=== PATIENT | male | born 1950 | race Caucasian/White ===

== ENCOUNTER 2021-03-18 08:46 | Inpatient (IN) | payer MEDICARE, OTHER, SELFPAY ==
[2021-03-18] VITALS (13 sets, daily range): BP systolic 103–154; BP diastolic 62–76; PULSE 78–97; RESP 12–20; TEMP 36.3–36.6; O2SAT 93–99; BMI 35.6
--- NOTE | ~2021-03-18 | US_ITS ---
EXAMINATION: US abdomen complete DATE: 03/20/2021 10:52 INDICATION: Epigastric abdominal pain. TECHNIQUE: Multiple grayscale and Doppler ultrasound images of the abdomen were obtained. COMPARISON: CT abdomen and pelvis 03/18/2021 FINDINGS: The visualized portions of the head and body of the pancreas are normal. The liver is jerry l without focal lesion. No liver surface nodularity. There is normal flow in main portal vein. The ga llbladder is normal in size. No gallstones or gallbladder wall thickening. There was no sonographic M urphy sign. The common duct is normal and measures 6 mm. The inferior vena cava is normal. Abdominal aorta is normal in caliber. The kidneys are normal in size. There are cysts in the kidneys measuring up to 2.0 cm on the right. There is borderline splenomegaly measuring 13.2 cm, likely secondary to ob esity. IMPRESSION: 1. No etiology for the patient's symptoms. Reviewed, dictated and finalized at location B.
--- NOTE | ~2021-03-18 | CT_ITS ---
EXAMINATION: CT abdomen pelvis wo con DATE: 03/18/2021 12:15 INDICATION: Bowel obstruction with nausea, vomiting and constipation. TECHNIQUE: Computed tomography (CT) of the abdomen and pelvis was performed without intravenous contr ast. Automated exposure control and iterative reconstruction technique were employed. The dose-length product was 1393.60 mGy-cm. COMPARISON: CT abdomen and pelvis dated 08/11/2013 and chest dated 12/09/2019 FINDINGS: Mild emphysema in the lung bases. New peripheral opacities in the posterolateral right lower lobe wit h bandlike configuration on the sagittal and coronal projections most consistent with atelectasis/sca rring. Additional mild left basilar atelectasis. Heart size is normal. No pericardial effusion. Promi nent wall thickening along the visualized distal esophagus suspicious for esophagitis such as in the setting of reflux. There is also suggestion of some wall thickening in the proximal duodenum suggesti ve of duodenitis which could also be infectious or inflammatory in etiology or related to peptic ulce r disease. 1.3 cm cyst in the right hepatic lobe. Gallbladder, spleen, pancreas and bilateral adrenal glands are normal. Bilateral renal cysts, the largest on the right measuring 2.4 cm. There are few s cattered colonic diverticula without adjacent inflammatory change to suggest diverticulitis. Normal a ppendix. No dilated bowel to suggest obstruction. Bladder is normal. Mild prostatomegaly. No free int raperitoneal gas or fluid. No pathologically enlarged abdominal or pelvic lymphadenopathy. Mild scatt ered degenerative skeletal changes. IMPRESSION: 1. Prominent wall thickening the distal esophagus suspicious for esophagitis which could be infectiou s or inflammatory etiology including due to reflux. Given the extent of wall thickening, malignancy w ould be less likely but could consider endoscopy for more definitive determination. 2. Mild wall thickening in the proximal duodenum with similar differential most likely either infecti ous or inflammatory including peptic ulcer disease. Reviewed, dictated and finalized at location A. IMPRESSION: 1. Prominent wall thickening the distal esophagus suspicious for esophagitis wh ich could be infectious or inflammatory etiology including due to reflux. Given the extent of wall thickening, malignancy would be less likely but could consi siva endoscopy for more definitive determination. 2. Mild wall thickening in the proximal duodenum with similar differential most likely either infectious or inflammatory including peptic ulcer disease.
[2021-03-18 10:16] LABS: Basophils Percent Auto 0.3 % (0.2-1.2); Eosinophils Percent Auto 0.1 % (0-4.4); Hematocrit 44.5 % (42.0-52.0); Hemoglobin 15.3 g/dL (14.0-18.0); Immature Granulocyte Percent A 0.9 % (0-0.5); Lymphocytes Absolute Auto 0.65 K/mm3 (0.9-3.2); Lymphocytes Percent Auto 5.6 % (18.3-44.2); Mean Corpuscular HGB Conc 34.4 g/dl (32-36); Mean Corpuscular Hemoglobin 29.8 pg (26-34); Mean Corpuscular Volume 86.7 fl (80-100); Mean Platelet Volume 9.6 fl (7.4-10.4); Monocytes Absolute Auto 0.9 K/mm3 (0.1-0.6); Neutrophils Absolute Auto 9.9 K/mm3 (1.3-6.7); Neutrophils Percent Auto 85.1 % (45.5-73.1); Platelet Count Result 240 k/mm3 (150-375); Red Blood Count 5.13 M/mm3 (4.6-6.20); Red Cell Distribution Width 13.3 % (11.5-14.5); White Blood Count 11.6 K/mm3 (4.5-10.0)
[2021-03-18 10:42] LABS: Alanine Aminotransferase 18 U/L (4-50); Albumin Level 4.6 g/dL (3.5-5.1); Alkaline Phosphatase 91 U/L (38-126); Anion Gap 15 mmol/L (8-16); Aspartate Amino Transferase 18 U/L (17-59); Bilirubin,Total 0.8 mg/dL (0.2-1.3); Blood Urea Nitrogen 58 mg/dL (9-20); Calcium 9.9 mg/dL (8.4-10.2); Carbon Dioxide 22 mmol/L (22-30); Chloride 94 mmol/L (98-107); Estimated CRCL calculation 41 ml/min; Estimated Glomerular Filt Rate 30; Glucose 510 mg/dL (75-110); Lipase 52 U/L (23-300); Potassium 4.1 mmol/L (3.4-5.0); Sodium 131 mmol/L (137-145)
[2021-03-18 11:14] LABS: Magnesium 2.2 mg/dL (1.6-2.3); Phosphorus 3.7 mg/dL (2.5-4.5)
[2021-03-18] MEDS: SODIUM CHLORIDE 0.9% IV 1,000 ML 999 ML IV CONT ×3 (11:19→15:01)
[2021-03-18] MEDS: ONDANSETRON INJ 4 MG/2 ML VIAL IV PUSH ×2 (11:21→17:36)
[2021-03-18 11:22] LABS: Add Urine Microscopic? YES; Appearance Urine Clear (Clear); Bilirubin Urine Negative (Negative); Blood Urine 1+ (Negative); Color Urine Yellow (Yellow); Glucose Urine UA 3+ mg/dL (Negative); Ketones Urine 1+ mg/dL (Negative); Leukocyte Esterase Ur Negative LEU/UL (Negative); Mucus Urine Rare /lpf; Nitrate Urine Negative (Negative); Protein Urine 2+ mg/dL (Negative); RBC Urine 0-2 /hpf (0-2); Specific Grav Ur 1.026 (1.001-1.035); Squamous Epithelial Cell Urine Rare /hpf (Few); Urobilinogen Urine Negative mg/dL (<2.0); WBC Urine 0-3 /hpf
[2021-03-18] MEDS: PANTOPRAZOLE SODIUM IV 40 MG VIAL IV PUSH ×2 (11:23→20:58)
[2021-03-18 11:25] LABS: Beta-Hydroxybutyrate/Acetoacetate 3.35 mmol/L (0.02-0.27)
--- NOTE | 2021-03-18 11:33 | ECG_ITS ---
Measurements Intervals [place] Rate: 89 P: 61 [place]: 157 QRS: 19 QRSD: 150 T: 40 QT: 398 QTc: 484 Interpretive Statements SINUS RHYTHM RIGHT BUNDLE BRANCH BLOCK ABNORMAL ECG Electronically Signed On 03-18-2021 17:39:43 CDT by Fish Wiggins D.O.
[2021-03-18 11:54] LABS: Alveolar/Arterial O2 Gradient 42.3 mmHg; Base Excess ABG -6.4 mEq/l (+/-2.0); Carboxyhemoglobin 0.8 % THb (0-2.0); Fractional Inspired Oxygen 21 %; Methemoglobin ABG 0.2 %THb (0-1.5); Oxygen Content ABG 18.4 %vol (16.0-22.0); Oxygen Saturation ABG 93.1 % (95.0-100.0); Oxyhemoglobin 92.1 % THb (90.0-100.0); PCO2 ABG 32.9 mmHg (35.0-45.0); PO2 FiO2 Ratio Arterial Blood 3.24 %; Reduced Hemoglobin 6.9 %THb (0-5.0); Total Hemoglobin 14.2 g/dL (12.0-18.0); pH ABG 7.356 (7.350-7.450)
[2021-03-18 11:55] LABS: Device ROOM AIR; Site Drawn LEFT BRACHIAL
--- NOTE | 2021-03-18 12:24 | ED.GENADULT ---
HPI - General Adult General Chief complaint: Nausea/Vomiting/Diarrhea Stated complaint: vomiting x 3 days/constipation/weak Time Seen by Provider: 03/18/21 10:28 Source: patient and family Mode of arrival: ambulatory Limitations: no limitations History of Present Illness HPI narrative: Patient is 70-year-old male who presents with 4 days duration of emesis multiple episodes per day with some aching pain in the upper abdomen denies sick contacts or similar occurrence in the past patient had Zofran called in by primary care which she has been taking but continues to have emesis patient denies any rectal bleeding or melena has not had a bowel movement in 4 days patient on arrival appears uncomfortable and notes that any p.o. intake causes emesis Related Data Home Medications Medication Instructions Recorded Confirmed blood sugar diagnostic #10 each 12/07/19 11/30/20 blood-glucose meter #1 each 12/07/19 11/30/20 lancets 30 gauge #25 each 12/07/19 11/30/20 subcutaneous insulin pump #1 each 03/24/20 11/30/20 pen needle, diabetic 31 gauge x #30 each 06/15/20 11/30/2004/16 amlodipine [Norvasc] 10 mg PO DAILY 03/18/21 03/18/21 atorvastatin 03/18/21 duloxetine [Cymbalta] 60 mg PO DAILY 03/18/21 03/18/21 insulin aspart U-100 [Novolog 03/18/21 U-100 Insulin aspart] metformin mg PO 03/18/21 tamsulosin [Flomax] 0.4 mg PO DAILY 03/18/21 03/18/21 valsartan [Diovan] 320 mg PO DAILY 03/18/21 03/18/21 Allergies Allergy/AdvReac Type Severity Reaction Status Date / Time oxycodone Allergy Unknown Hives Verified 03/18/21 09:02 Review of Systems Review of Systems: All systems reviewed & are unremarkable except as noted in HPI and below PMFSH Past Medical History Medical History (Updated 03/18/21 @ 13:51 by Alfred Cruz PA-C) Chronic pain Erectile dysfunction Essential (primary) hypertension Insulin pump in place [facility] (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) 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 Pure hypercholesterolemia Tobacco abuse Type 2 diabetes mellitus with hyperglycemia Type 2 diabetes mellitus without complications Surgical History Surgical History (Updated 03/18/21 @ 12:25 by Alfred Cruz PA-C) History of orthopedic surgery Family History Family History Mother Hypertension Family history of malignant neoplasm of ovary Father Family history of chronic obstructive pulmonary disease, Onset Age: 66 Other Depression Family history of arthritis Family history of lung disease Family history of mental disorder Social History Social History Smoking packs per day: 1 Smoking cigarettes per day: 20.0 Years smoked: 35 Smoking pack-years: 35.00 Smoking status: Former smoker Tobacco type: cigarettes Second hand tobacco smoke exposure: Yes Smoking end date: 12/02/12 Alcohol intake: never Substance use: never Substance use type: does not use Gender identity (if verbalized by the patient): Male Exam Narrative: Exam Narrative: GENERAL: Well-appearing, obese, and in no acute distress. HEAD: Normocephalic, atraumatic. EYES: PERRLA and EOMI. ENT: Nares clear, no rhinorrhea or epistaxis. Mucous membranes moist. CHEST: Clear to auscultation. No respiratory distress. No wheezes rales or rhonchi HEART: Regular rate and rhythm. No murmur heard. Normal peripheral pulses. ABDOMEN: Soft, tenderness in the upper abdomen, nondistended, no rebound or guarding EXTREMITIES: Normal range of motion. No edema. SKIN: Warm, dry, no rash. NEURO: No focal deficits. Alert and oriented x3. PSYCH: Normal mood and affect. Course Course Emergency Course: Patient is a 70-year-old male who presented with vomiting was found to have acute kidney injury esophagitis and possible peptic ulcer disease has been given 3 L of saline in the emergency department was seen by the hospitalist and we put
[2021-03-18 13:18] LABS: Glucose Point of Care 477 (65-105)
--- NOTE | 2021-03-18 13:18 | PC.NURSE ---
Pt blood sugar 477, PA aware.
--- NOTE | 2021-03-18 13:30 | PM.IMHP ---
H&P: HPI History of Present Illness Date/Time: 03/18/21 13:30 Chief Complaint: Nausea, vomiting, and abdominal pain. Narrative: This is a 70-year-old male with insulin-dependent diabetes, hypertension, hyperlipidemia, and sleep apnea who presented to the emergency department earlier today for evaluation of nausea, vomiting, and abdominal pain. Several days ago he had barbecue and shortly thereafter he developed pretty severe heartburn. He goes on to say that he used to suffer from heartburn and has a remote history of peptic ulcers but has not had issues for many years. Not long thereafter he developed nausea and reports emesis almost every hour for approximately 3 days. Additionally he has a burning and aching discomfort in the epigastrium which seems to radiate up the esophagus, which he thinks is related to the vomiting. In the emergency department he was found to be quite dehydrated with a creatinine that is nearly double than his baseline. CT of the abdomen and pelvis showed findings suspicious for esophagitis and possibly peptic ulcer disease. With further questioning he does admit to taking at least 1600 milligrams of ibuprofen a day for many years, which he takes for chronic pain related to an incident over a decade ago in which he fell off a 30 foot scaffold and fractured 32 bones. He is feeling somewhat better at this time after receiving IV fluid rehydration and antiemetics. He denies hematemesis, melena, and hematochezia but goes on to say is not had a bowel movement for 4 days. He has not noticed a significant decrease in urine output. Review of Systems Review of Systems: Narrative: Twelve systems were reviewed. No fever, chills, or sweats. He denies recent cold and flu symptoms. No exposure to those positive for COVID-19. He denies chest pain, shortness of breath, and cough. He has not been checking his glucose very often the last 4 days due to feeling so ill and was surprised that was over 500 today however he does not being extremely thirsty. No blurry vision or polyuria. Except as documented, all other systems were reviewed and are negative. [facility] Past Medical History Medical History (Updated 03/18/21 @ 13:58 by Salina Velasquez PA-C) Chronic pain Related to falling off a 30 foot scaffold in which he fractured 30 to bones. Previously on hydrocodone, he now takes ibuprofen and acetaminophen to manage the pain. Erectile dysfunction Essential hypertension Insulin dependent type 2 diabetes mellitus Hemoglobin A1c was 8.9% on 01/26/2021. Patient uses an insulin pump. Obstructive sleep apnea on CPAP Pure hypercholesterolemia Tobacco abuse Former smoker. Continues to chew Nicorette gum. Surgical History Surgical History (Updated 03/18/21 @ 13:54 by Salina Velasquez PA-C) History of orthopedic surgery Multiple orthopedic surgeries for fracture sustained in a fall off of a 30 foot scaffold, including repair of foot, shoulder, and elbow fractures. Family History Family History Mother Hypertension Family history of malignant neoplasm of ovary Father Family history of chronic obstructive pulmonary disease, Onset Age: 66 Other Depression Family history of arthritis Family history of lung disease Family history of mental disorder Social History Social History (Updated 03/18/21 @ 13:55 by Salina Velasquez PA-C) Social History: Surrogate decision maker: Margie Cassidy, . Code status: Full code. Smoking packs per day: 1 Smoking cigarettes per day: 20.0 Years smoked: 35 Smoking pack-years: 35.00 Smoking status: Former smoker Tobacco type: cigarettes Second hand tobacco smoke exposure: Yes Smoking end date: 12/02/12 Additional smoking assessment comments: Continues to chew Nicorette gum. Alcohol intake: never Substance use: never Substance use type: does not use Additional living arrangements co
[2021-03-18] MEDS: LIDOCAINE HCL 2% VISC SOLN 15 ML UDC 20 ML PO (15:07)
[2021-03-18] MEDS: MAG HYDROX/AL HYDROX/SIMETH 30 ML UDC PO (15:08)
[2021-03-18] MEDS: FAMOTIDINE 20 MG/2 ML VIAL IV PUSH (15:08)
[2021-03-18 15:21] LABS: Glucose Point of Care 397 (65-105)
--- NOTE | 2021-03-18 15:54 | ADMGEN ---
This patient, Dyllan Cassidy, was admitted to Medical Room 347-01. Patient/family oriented to hospital policies and general routines including ID bracelet, bed and alarms, visiting hours, pain management, procedures, bathroom and other care routines, personal items, smoking policy, room service/diet, and visiting hours. Information on how to activate the Rapid Response Team has been discussed. Patient/Family are encouraged to report perceived risks to care and to ask questions if they do not understand what they are told or what they should do.
[2021-03-18 16:46] LABS: Glucose Point of Care 274 (65-105)
[2021-03-18] MEDS: INSULIN ASPART (*BKC) 100 UNITS/ML SUB-Q (17:23)
[2021-03-18] MEDS: SODIUM CHLORIDE 0.9% IV 1,000 ML 75 ML IV CONT (17:29)
--- NOTE | 2021-03-18 18:11 | PCRCNOTE ---
Spoke with Pt. about wearing a CPAP at night. Pt. states he has one at home but has not been wearing lately due to being afraid of vomiting into it. Pt. states he does not want to wear one here because he has been been sleeping great without it. If he changes his mind Pt. states he will let us know. Janel aware.
[2021-03-18 20:38] LABS: Anion Gap 8 mmol/L (8-16); Blood Urea Nitrogen 52 mg/dL (9-20); Calcium 8.5 mg/dL (8.4-10.2); Carbon Dioxide 21 mmol/L (22-30); Chloride 104 mmol/L (98-107); Estimated CRCL calculation 56 ml/min; Estimated Glomerular Filt Rate 43; Glucose 334 mg/dL (75-110); Potassium 4.1 mmol/L (3.4-5.0); Sodium 133 mmol/L (137-145)
[2021-03-18 20:43] LABS: Beta-Hydroxybutyrate/Acetoacetate 2.13 mmol/L (0.02-0.27)
[2021-03-18] MEDS: INSULIN GLARGINE (*BKC) 100 UNITS/ML 40 UNITS SUB-Q (20:58)
[2021-03-18 21:55] LABS: Glucose Point of Care 335 (65-105)
[2021-03-19 06:09] LABS: Basophils Percent Auto 0.5 % (0.2-1.2); Eosinophils Percent Auto 0.3 % (0-4.4); Hematocrit 39.4 % (42.0-52.0); Hemoglobin 13.2 g/dL (14.0-18.0); Immature Granulocyte Absolute 0.03 K/mm3 (0.00-0.031); Immature Granulocyte Percent A 0.4 % (0-0.5); Lymphocytes Absolute Auto 0.91 K/mm3 (0.9-3.2); Lymphocytes Percent Auto 11.6 % (18.3-44.2); Mean Corpuscular HGB Conc 33.5 g/dl (32-36); Mean Corpuscular Hemoglobin 29.1 pg (26-34); Mean Corpuscular Volume 86.8 fl (80-100); Mean Platelet Volume 10.5 fl (7.4-10.4); Monocytes Absolute Auto 0.7 K/mm3 (0.1-0.6); Monocytes Percent Auto 8.9 % (2.6-8.5); Neutrophils Absolute Auto 6.2 K/mm3 (1.3-6.7); Neutrophils Percent Auto 78.3 % (45.5-73.1); Platelet Count Result 163 k/mm3 (150-375); Red Blood Count 4.54 M/mm3 (4.6-6.20); Red Cell Distribution Width 13.3 % (11.5-14.5); White Blood Count 7.9 K/mm3 (4.5-10.0)
[2021-03-19 06:24] LABS: Alanine Aminotransferase 12 U/L (4-50); Albumin Level 3.5 g/dL (3.5-5.1); Alkaline Phosphatase 70 U/L (38-126); Anion Gap 9 mmol/L (8-16); Aspartate Amino Transferase 16 U/L (17-59); Bilirubin,Total 0.7 mg/dL (0.2-1.3); Blood Urea Nitrogen 48 mg/dL (9-20); Calcium 8.5 mg/dL (8.4-10.2); Carbon Dioxide 21 mmol/L (22-30); Chloride 104 mmol/L (98-107); Estimated CRCL calculation 63 ml/min; Estimated Glomerular Filt Rate 50; Glucose 390 mg/dL (75-110); Potassium 4.5 mmol/L (3.4-5.0); Sodium 134 mmol/L (137-145)
[2021-03-19 06:27] VITALS: BP 162/68; PULSE 70; RESP 16; TEMP 36.7; O2SAT 95
[2021-03-19 06:47] LABS: Hemoglobin A1C 9.5 % (<5.7)
[2021-03-19 06:47] LABS: Glucose Point of Care 390 (65-105)
[2021-03-19 06:57] LABS: Magnesium 2.2 mg/dL (1.6-2.3)
[2021-03-19 07:48] LABS: Glucose Point of Care 364 (65-105)
[2021-03-19] MEDS: INSULIN ASPART (*BKC) 100 UNITS/ML SUB-Q (09:40)
--- NOTE | 2021-03-19 10:23 | WPDGICN ---
GI Consult Note Consult date/time: 03/19/21 10:23 HPI: Reason for consultation is nausea, vomiting and abdominal pain. This very pleasant gentleman seen in consultation request of the hospitalist with the patient's permission. The patient was examined and chart was reviewed. Impression: A very pleasant gentleman with nausea, vomiting and abdominal pain. Underlying peptic ulcer disease is in the differential. He has a thickened esophagus compatible with underlying esophagitis. Diabetes mellitus uncontrolled. Acute kidney injury secondary to dehydration. HLD. HTN. ED. COPD. MARTHA. History of tobacco abuse in remission. Obesity. BPH. Recommendation: Ppi q.12 hours. Recheck laboratory studies. Ultrasound of the abdomen. EGD. History: This very pleasant gentleman was admitted to the hospital with chest pain, nausea, vomiting and pain. Patient 6 days prior to admission was eating some barbecue. He was having some trouble with heartburn at that time. He took Rolaids with no benefit. Four days prior to admission he began having epigastric abdominal pain with significant nausea and vomiting. The emesis was bile/ brown in color. He reported every hour he would have this nausea, vomiting and abdominal pain. He described the abdominal pain in the epigastric area as a hurting pain. No radiation was reported. he was unable to tolerate much oral intake. He presented to the emergency room as he began having some chest pain. He described this as a chest burning. He was given GI cocktail which alleviated his chest pain. He denied any palpitations, syncope, PND, orthopnea, shortness of breath, dyspnea, fever, chills or night sweats. He denied any cough or sputum production. Patient was admitted to the hospital. CT imaging was obtained. CT imaging revealed: IMPRESSION: 1. Prominent wall thickening the distal esophagus suspicious for esophagitis which could be infectious or inflammatory etiology including due to reflux. Given the extent of wall thickening, malignancy would be less likely but could consider endoscopy for more definitive determination. 2. Mild wall thickening in the proximal duodenum with similar differential most likely either infectious or inflammatory including peptic ulcer disease. Patient at this time is not had a bowel movement for approximately 4 days. Prior to that his bowel habits were normal. He normally denies any hematochezia, melena or acholic stools. He has previously had a colonoscopy I year to ago which was unremarkable. He has never had an EGD. Patient does admit to taking NSAIDs on a pretty regular basis. His appetite is usually good and he denies any significant weight loss. Physical examination: General: very pleasant patient in no acute distress. HEENT: Head was normocephalic sclerae is clear mouth without masses neck was supple. Heart: Rate rhythm regular without S3 or S4. Lungs: CTA. Abdomen: Soft with no guarding or rigidity. Bowel sounds were active. Neurologic: Cranial nerves 2 through 12 intact. No focal defects. No clonus. Musculoskeletal system: Revealed no joint tenderness or swelling no muscle atrophy. Extremities: Reveal no significant edema. Skin: Warm and dry with normal turgor. Mental status: intact. Patient is alert and oriented. Review of Systems Review of Systems: All systems reviewed & are unremarkable except as noted in HPI and below PMFSH Past Medical History Medical History (Updated 03/19/21 @ 10:30 by Konrad Santos DO) BPH (benign prostatic hyperplasia) COPD (chronic obstructive pulmonary disease) Erectile dysfunction HLD (hyperlipidemia) HTN (hypertension) Insulin dependent type 2 diabetes mellitus Hemoglobin A1c was 8.9% on 01/26/2021. Patient uses an insulin pump. Obesity MARTHA on CPAP Tobacco abuse Former smoker. Continues to chew Nicorette gum. Surgical History Surgical History (Updated 03/19/21 @
[2021-03-19] MEDS: PANTOPRAZOLE SODIUM IV 40 MG VIAL IV PUSH ×2 (10:47→21:40)
[2021-03-19 11:08] LABS: Prothrombin Time 13.4 Seconds (11.1-14.7)
[2021-03-19 11:12] LABS: Alanine Aminotransferase 13 U/L (4-50); Albumin Level 3.7 g/dL (3.5-5.1); Alkaline Phosphatase 71 U/L (38-126); Anion Gap 10 mmol/L (8-16); Aspartate Amino Transferase 14 U/L (17-59); Bilirubin,Total 0.8 mg/dL (0.2-1.3); Blood Urea Nitrogen 40 mg/dL (9-20); Calcium 8.8 mg/dL (8.4-10.2); Carbon Dioxide 22 mmol/L (22-30); Chloride 103 mmol/L (98-107); Estimated CRCL calculation 64 ml/min; Estimated Glomerular Filt Rate 50; Glucose 395 mg/dL (75-110); Magnesium 2.1 mg/dL (1.6-2.3); Phosphorus 2.1 mg/dL (2.5-4.5); Sodium 135 mmol/L (137-145)
[2021-03-19 11:18] LABS: Hematocrit 40.1 % (42.0-52.0); Hemoglobin 13.4 g/dL (14.0-18.0); Mean Corpuscular HGB Conc 33.4 g/dl (32-36); Mean Corpuscular Hemoglobin 28.8 pg (26-34); Mean Corpuscular Volume 86.1 fl (80-100); Mean Platelet Volume 9.3 fl (7.4-10.4); Platelet Count Result 182 k/mm3 (150-375); Red Blood Count 4.66 M/mm3 (4.6-6.20); Red Cell Distribution Width 13.3 % (11.5-14.5); White Blood Count 6.7 K/mm3 (4.5-10.0)
[2021-03-19 11:22] LABS: LDL Cholesterol Direct 73 mg/dL
[2021-03-19 11:34] LABS: Cholesterol 150 mg/dL (0-200); HDL Direct 49 mg/dL; Triglycerides 137 mg/dL (<150)
[2021-03-19 11:43] LABS: Glucose Point of Care 325 (65-105)
[2021-03-19 12:03] LABS: Free T4 Free Thyroxine 0.92 ng/mL (0.78-2.19)
[2021-03-19 14:00] VITALS: BP 158/72; PULSE 83; RESP 14; TEMP 36.6; O2SAT 97
[2021-03-19 16:58] LABS: Glucose Point of Care 192 (65-105)
[2021-03-19 20:42] VITALS: BP 152/67; PULSE 74; RESP 14; TEMP 37.3; O2SAT 97
[2021-03-19 20:44] VITALS: BMI 36.1
[2021-03-19] MEDS: INSULIN GLARGINE (*BKC) 100 UNITS/ML 40 UNITS SUB-Q (21:39)
[2021-03-19 22:05] LABS: Glucose Point of Care 203 (65-105)
[2021-03-20 01:21] LABS: Glucose Point of Care 125 (65-105)
[2021-03-20 05:44] VITALS: BP 180/95; PULSE 72; RESP 16; TEMP 36; O2SAT 98
[2021-03-20 06:49] LABS: Glucose Point of Care 112 (65-105)
[2021-03-20] MEDS: PANTOPRAZOLE SODIUM IV 40 MG VIAL IV PUSH (08:02)
--- NOTE | 2021-03-20 12:21 | PCRCNOTE ---
Pt states he does wear a CPAP at home sometimes, but hasn't worn it in a while. He does not want to wear our machine while he is here.
[2021-03-20 12:24] LABS: Glucose Point of Care 86 (65-105)
[2021-03-20] MEDS: LACTATED RINGERS 1,000 ML 150 ML IV CONT (14:16)
[2021-03-20 14:20] VITALS: BP 156/68; PULSE 74; RESP 18; TEMP 36.5; O2SAT 100
--- NOTE | 2021-03-20 14:22 | WPDHPUPDATE1 ---
History and Physical Update Update Date/Time: 03/20/21 14:22 History and Physical has been reviewed, including an updated exam of the patient. There are NO changes in the patient's condition. Risks, benefits, and alternatives have been discussed and questions answered. Patient agrees to proceed with procedure.
[2021-03-20 14:29] LABS: Glucose Point of Care 126 (65-105)
[2021-03-20 15:44] VITALS: BP 143/78; PULSE 74; RESP 18; O2SAT 100
[2021-03-20 15:54] VITALS: BP 146/72; PULSE 72; RESP 20; O2SAT 100
[2021-03-20 17:41] LABS: Glucose Point of Care 165 (65-105)
--- NOTE | 2021-03-20 18:20 | PM.IMPN ---
Progress Note: A&P Assessment and Plan (1) Nausea and vomiting: Code(s): R11.2 - Nausea with vomiting, unspecified Status: Acute Assessment and Plan: Resolved Status post EGD Follow GI recommendations (2) Epigastric pain: Code(s): R10.13 - Epigastric pain Status: Acute Assessment and Plan: Patient was found to have duodenal ulcers on EGD Will start Carafate Advance diet as tolerated (3) Acute kidney injury: Code(s): N17.9 - Acute kidney failure, unspecified Status: Acute Assessment and Plan: Likely to be pre renal Creatinine is close to normal Continue to monitor (4) Essential hypertension: Code(s): I10 - Essential (primary) hypertension Status: Acute Assessment and Plan: Well controlled Restart home meds (5) Obstructive sleep apnea on CPAP: Code(s): G47.33 - Obstructive sleep apnea (adult) (pediatric); Z99.89 - Dependence on other enabling machines and devices Status: Acute Assessment and Plan: CPAP at nighttime (6) Former smoker: Code(s): Z87.891 - Personal history of nicotine dependence Status: Acute Subjective Date/time seen: 03/20/21 18:20 Patient states that he is very thirsty. This was at the time of my visit early in the morning patient was in preparation for EGD today Review of Systems Review of Systems: Narrative: Epigastric pain, nausea and vomiting for 3 days and diarrhea Constitutional: Comments: No fevers no rigors or chills Exam Narrative: Exam Narrative: Patient is laying in bed awake alert well-appearing Const: General: comfortable, no acute distress, well developed, alert and awake Nutritional Appearance: average body habitus Orientation/consciousness: patient oriented x3 HENMT: Head: normal to inspection, normocephalic and atraumatic Ears: hearing grossly normal bilaterally Face and sinus: normal facial exam Eyes: General: appearance normal, both eyes and all related structures Pupils: Equal, round and reactive pupils present EOM: EOMs intact bilaterally Neck: Neck: full ROM, no lymphadenopathy and no JVD Thyroid: thyroid normal Lymphatic: no lymphadenopathy noted Resp: Effort & Inspection: normal respiratory effort and able to speak in complete sentences Auscultation: clear to auscultation bilaterally Cardio: Jugular venous distension: no JVD Rate: regular rate Rhythm: regular rhythm Heart sounds: S1 normal heart sound present and S2 normal heart sound present GI: GI Palp: Yes Soft to palpation and Yes No hepatosplenomegaly present : General: Yes deferred Skin: Rashes: no rashes Wounds: no wounds Neuro: General: patient oriented x3 and CN's II-XI intact bilaterally Cranial nerves: Yes CN's II-XII intact bilaterally and Yes Equal, round and reactive pupils present Cognition (Neuro): normal cognition Speech: normal speech Gait exam (Neuro): Normal gait present Motor exam (neuro): 5/5 motor strength present throughout Extrem: General: normal to inspection, full ROM, no joint enlargement and no pedal edema Objective Data Vital Signs Vital Signs: Vital Signs - 24 hr 03/19/21 20:42 03/20/21 05:44 03/20/21 14:20 Temperature 99.1 F 96.8 F L 97.7 F Pulse Rate 74 72 74 Respiratory Rate 14 16 18 Blood Pressure 152/67 H 180/95 H 156/68 H Pulse Oximetry 97 98 100 03/20/21 15:44 03/20/21 15:54 Temperature Pulse Rate 74 72 Respiratory Rate 18 20 Blood Pressure 143/78 H 146/72 H Pulse Oximetry 100 100 Intake/Output Intake/Output: Intake & Output 03/17/21 03/18/21 03/19/21 03/20/21 23:59 23:59 23:59 23:59 Intake Total 2440 1630 1430 Output Total 0 1425 900 Balance 2440 205 530 Meds/Results Medications: Active Medications Generic Name Dose Route Start Last Admin Trade Name Freq PRN Reason Stop Dose Admin Dextrose 12.5 gm 03/18/21 13:51 Dextrose 50% 25 Gm/50 Ml Syringe IV PUSH PRN PRN Hypoglycemia Protocol
[2021-03-20] MEDS: SUCRALFATE SUSP 100 MG/ML 10 ML UDC 1000 MG PO ×2 (18:46→20:47)
[2021-03-20] MEDS: PANTOPRAZOLE 40 MG TABLET PO (20:47)
[2021-03-20 21:37] VITALS: BP 155/74; PULSE 75; RESP 16; TEMP 36.6; O2SAT 97
[2021-03-20] MEDS: INSULIN GLARGINE (*BKC) 100 UNITS/ML 40 UNITS SUB-Q (21:46)
[2021-03-20 21:50] LABS: Glucose Point of Care 156 (65-105)
[2021-03-21 04:54] VITALS: BP 143/62; PULSE 66; RESP 18; TEMP 36.4; O2SAT 98
[2021-03-21] MEDS: SUCRALFATE SUSP 100 MG/ML 10 ML UDC 1000 MG PO ×2 (06:03→11:44)
[2021-03-21] MEDS: PANTOPRAZOLE 40 MG TABLET PO (09:14)
[2021-03-21 09:25] LABS: Glucose Point of Care 159 (65-105)
[2021-03-21 12:06] LABS: Glucose Point of Care 185 (65-105)
--- NOTE | 2021-03-21 12:24 | PM.DS ---
DS: Admitting Diagnosis Admitting Diagnosis Admitting Diagnosis: Nausea, vomiting, and abdominal pain. DS: Discharge Diagnosis Discharge Diagnosis (1) Nausea and vomiting: Code(s): R11.2 - Nausea with vomiting, unspecified Status: Acute Assessment and Plan: Resolved Status post EGD Patient was found to have duodenal ulcers, duodenitis and hiatal hernia on EGD Follow GI recommendations, continue with protonix twice a day (2) Epigastric pain: Code(s): R10.13 - Epigastric pain Status: Acute Assessment and Plan: Patient was found to have duodenal ulcers on EGD Will start Carafate Advance diet as tolerated pt advised bland diet (3) Acute kidney injury: Code(s): N17.9 - Acute kidney failure, unspecified Status: Acute Assessment and Plan: Likely to be pre renal Creatinine is close to normal, 1.4 two days ago, pt advised to drink plenty of water. (4) Essential hypertension: Code(s): I10 - Essential (primary) hypertension Status: Acute Assessment and Plan: Well controlled Restart home meds (5) Obstructive sleep apnea on CPAP: Code(s): G47.33 - Obstructive sleep apnea (adult) (pediatric); Z99.89 - Dependence on other enabling machines and devices Status: Acute Assessment and Plan: CPAP at nighttime (6) Former smoker: Code(s): Z87.891 - Personal history of nicotine dependence Status: Acute Assessment and Plan: Pt denies smoking presently, strongly advised not to restart. (7) Chronic pain: Code(s): G89.29 - Other chronic pain Status: Acute Assessment and Plan: Pt considering medical majiana used to take alot of ibuprofen advised not to take ibuprofen can try Tylenol if he wants. DS: Summary Hospital Course Hospital Course: Pt admitted wit nausea and vmiting. Which has resolved. Pt is Status post EGD. Patient was found to have duodenal ulcers, duodenitis and hiatal hernia on EGD Follow GI recommendations, continue with protonix twice a day. Pt strongly adviced no smoking no NSAIDS, drink plenty of water and bland diet at home and to follow up with GI. Time Spent with Patient Time attestation: Total time spent providing and/or coordinating discharge services:40 minutes on day of discharge Exam Const: General: comfortable, no acute distress, well developed, alert and awake Nutritional Appearance: average body habitus Orientation/consciousness: patient oriented x3 Resp: Effort & Inspection: normal respiratory effort and able to speak in complete sentences Auscultation: clear to auscultation bilaterally Cardio: Jugular venous distension: no JVD Rate: regular rate Rhythm: regular rhythm Heart sounds: S1 normal heart sound present and S2 normal heart sound present Skin: Rashes: no rashes Wounds: no wounds Neuro: General: patient oriented x3 and CN's II-XI intact bilaterally Cranial nerves: Yes CN's II-XII intact bilaterally and Yes Equal, round and reactive pupils present Cognition (Neuro): normal cognition Speech: normal speech Gait exam (Neuro): Normal gait present Motor exam (neuro): 5/5 motor strength present throughout Extrem: General: normal to inspection, full ROM, no joint enlargement and no pedal edema DS: Data Data Completed and Pending Labs on day of discharge: Labs from last 24 hours 03/21/21 03/21/21 03/20/21 11:49 09:12 21:41 POC Capillary Glucose 185 H 159 H 156 H 03/20/21 03/20/21 03/20/21 17:14 14:15 12:12 POC Capillary Glucose 165 H 126 H 86 Discharge Plan Discharge Attending physician on discharge: Gissell Jean Consulting providers: Konrad Santos ; Gema Perry V. ; Willem Dalal ; Salina Velasquez ; Fish Wiggins ; Clarence Barnes V. ; Alfred Cruz Discharging Clinician: Gissell Jean Anticipated Discharge Date/Time: 03/21/21 12:22 Patient Disposition: Home, Self-Care Activity: as tolerated Diet: david
[2021-03-23 22:44] LABS: Vitamin D 1,25 (OH)2 Total 27 pg/mL (18-72); Vitamin D2 1,25 (OH)2 <8 pg/mL; Vitamin D3 1,25 (OH)2 27 pg/mL
--- NOTE | 2021-04-27 01:51 | PM.IMPN ---
Progress Note: A&P Assessment and Plan (1) Nausea and vomiting: Code(s): R11.2 - Nausea with vomiting, unspecified Status: Acute Assessment and Plan: Resolved Status post EGD Patient was found to have duodenal ulcers, duodenitis and hiatal hernia on EGD Follow GI recommendations, continue with protonix twice a day (2) Epigastric pain: Code(s): R10.13 - Epigastric pain Status: Acute Assessment and Plan: Patient was found to have duodenal ulcers on EGD Will start Carafate Advance diet as tolerated pt advised bland diet (3) Acute kidney injury: Code(s): N17.9 - Acute kidney failure, unspecified Status: Acute Assessment and Plan: Likely to be pre renal Creatinine is close to normal, 1.4 two days ago, pt advised to drink plenty of water. (4) Essential hypertension: Code(s): I10 - Essential (primary) hypertension Status: Acute Assessment and Plan: Well controlled Restart home meds (5) Obstructive sleep apnea on CPAP: Code(s): G47.33 - Obstructive sleep apnea (adult) (pediatric); Z99.89 - Dependence on other enabling machines and devices Status: Acute Assessment and Plan: CPAP at nighttime (6) Former smoker: Code(s): Z87.891 - Personal history of nicotine dependence Status: Acute Assessment and Plan: Pt denies smoking presently, strongly advised not to restart. (7) Chronic pain: Code(s): G89.29 - Other chronic pain Status: Acute Assessment and Plan: Pt considering medical majiana used to take alot of ibuprofen advised not to take ibuprofen can try Tylenol if he wants. Subjective Date/time seen: 04/27/21 01:51 Patient seen and examined on 03/19/2021 this is a late entry note. Review of Systems Review of Systems: All systems reviewed & are unremarkable except as noted in HPI and below Exam Narrative: Exam Narrative: Patient is laying in bed awake alert well-appearing Const: General: comfortable, no acute distress, well developed, alert and awake Nutritional Appearance: average body habitus Orientation/consciousness: patient oriented x3 HENMT: Head: normal to inspection, normocephalic and atraumatic Ears: hearing grossly normal bilaterally Face and sinus: normal facial exam Eyes: General: appearance normal, both eyes and all related structures Pupils: Equal, round and reactive pupils present EOM: EOMs intact bilaterally Neck: Neck: full ROM, no lymphadenopathy and no JVD Thyroid: thyroid normal Lymphatic: no lymphadenopathy noted Resp: Effort & Inspection: normal respiratory effort and able to speak in complete sentences Auscultation: clear to auscultation bilaterally Cardio: Jugular venous distension: no JVD Rate: regular rate Rhythm: regular rhythm Heart sounds: S1 normal heart sound present and S2 normal heart sound present : General: Yes deferred Skin: Rashes: no rashes Wounds: no wounds Neuro: General: patient oriented x3 and CN's II-XI intact bilaterally Cranial nerves: Yes CN's II-XII intact bilaterally and Yes Equal, round and reactive pupils present Cognition (Neuro): normal cognition Speech: normal speech Gait exam (Neuro): Normal gait present Motor exam (neuro): 5/5 motor strength present throughout Extrem: General: normal to inspection, full ROM, no joint enlargement and no pedal edema Objective Data Meds/Results Radiology Results: ITS Impressions Abdomen/Pelvis CT 03/18/21 12:23 IMPRESSION: 1. Prominent wall thickening the distal esophagus suspicious for esophagitis which could be infectious or inflammatory etiology including due to reflux. Given the extent of wall thickening, malignancy would be less likely but could consider endoscopy for more definitive determination. 2. Mild wall thickening in the proximal duodenum with similar differential most likely either infectious or inflammatory including peptic ulcer disease. Abdomen Ultrasound
== END 2021-03-21 13:25 | disposition home or self-care (01) | DRG 381 ==
LOC: ANHED 13:51 → ANH3MED 03-19 23:43
PROVIDERS: Emergency Medicine Emergency Medical Services; Internal Medicine Gastroenterology; Physician Assistant; Admitting Provider Family Medicine; Emergency Provider Emergency Medicine; PCP Family Medicine; Visit Provider Family Medicine
PROC: 0DJ08ZZ Inspection of Upper Intestinal Tract, Via Natural or Artificial Opening Endoscopic (ICD-10-PCS; CPT 43235; principal; 2021-03-20 14:30)
DX: K22.10 Ulcer of esophagus without bleeding (principal); N17.9 Acute kidney failure, unspecified; K26.9 Duodenal ulcer, unspecified as acute or chronic, without hemorrhage or perforation; I10 Essential (primary) hypertension; G47.33 Obstructive sleep apnea (adult) (pediatric); G89.29 Other chronic pain; E86.0 Dehydration; E78.5 Hyperlipidemia, unspecified; J44.9 Chronic obstructive pulmonary disease, unspecified; E11.65 Type 2 diabetes mellitus with hyperglycemia; N40.0 Benign prostatic hyperplasia without lower urinary tract symptoms; E66.9 Obesity, unspecified; K44.9 Diaphragmatic hernia without obstruction or gangrene; K29.80 Duodenitis without bleeding; Z87.891 Personal history of nicotine dependence; Z79.4 Long term (current) use of insulin; Z68.36 Body mass index [BMI] 36.0-36.9, adult
CPT/HCPCS: 36415; 36600; 74176; 76700; 80048; 80053; 80061; 80076; 81001; 82010; 82375; 82652; 82805; 82948; 83036; 83050; 83690; 83735; 84100; 84439; 84443; 85025; 85027; 85610; 87081; 93005; 96361; 96365; 96375; 96376; 99285; A9270; C9113; G0378; J0131; J1815; J2405; J2704; J7030; J7120

== ENCOUNTER 2021-06-29 11:30 | Outpatient (CLI) | payer MEDICARE, OTHER, SELFPAY ==
[2021-06-29 17:32] LABS: MALB Creatinine Ratio 223.1 mg/g (0-30); Microalbumin Urine Random 160.6 mg/L (0-16.7)
== END 2021-06-29 11:31 | disposition home or self-care (01) ==
LOC: ANHWCLAB 11:33
PROVIDERS: PCP Family Medicine; Visit Provider Internal Medicine Endocrinology, Diabetes & Metabolism
DX: E11.65 Type 2 diabetes mellitus with hyperglycemia (principal); Z79.4 Long term (current) use of insulin
CPT/HCPCS: 82043

== ENCOUNTER 2021-07-26 01:07 | Day surgery (SDC) | payer MEDICARE, OTHER, SELFPAY ==
[2021-07-18 13:17] VITALS: BMI 36.6
[2021-07-26 08:36] LABS: Glucose Point of Care 236 mg/dl (65-105)
[2021-07-26 08:49] VITALS: BP 154/80; PULSE 79; RESP 20; TEMP 36.4; O2SAT 98
--- NOTE | 2021-07-26 08:59 | WPDANESEPPF ---
Anes - Initial Pre Proc Eval Procedure: Operation Date: 07/26/21 09:30 Proposed Procedures p Esophagogastroduodenoscopy - Delano Pollock MD Date/Time: 07/26/21 08:59 Surgeon: Delano Pollock MD Pre Op Diagnosis: duodenal ulcer, erosive esophagus Patient Data Age: 71 Gender: M Height: 1.88 m Weight: 127.9 kg Last Vital Signs Temp 36.4 C 07/26/21 08:49 Pulse 79 07/26/21 08:49 Resp 20 07/26/21 08:49 BP 154/80 H 07/26/21 08:49 Pulse Ox 98 07/26/21 08:49 Allergies Allergy/AdvReac Type Severity Reaction Status Date / Time oxycodone Allergy Unknown Hives Verified 07/26/21 08:47 Home Medications Medication Instructions Recorded Confirmed Type blood sugar diagnostic #10 each 12/07/19 07/18/21 History blood-glucose meter #1 each 12/07/19 07/18/21 History lancets 30 gauge #25 each 12/07/19 07/18/21 History subcutaneous insulin pump #1 each 03/24/20 07/18/21 History pen needle, diabetic 31 gauge x #30 each 06/15/20 07/18/21 History 5/16 atorvastatin 10 mg PO DAILY 03/18/21 07/18/21 History valsartan [Diovan] 320 mg PO DAILY 03/18/21 07/18/21 History acetaminophen [Tylenol] 325 mg PO ONCE PRN #30 tablet NS 03/21/21 07/18/21 Rx amlodipine 10 mg tablet See Rx Instructions .ROUTE 04/17/21 07/18/21 Rx .COMPLEX #90 tablet tamsulosin 0.4 mg capsule 0.4 mg PO DAILY #90 cap 04/28/21 07/18/21 Rx insulin aspart U-100 100 unit/mL 120 unit CONTINUOUS SUBCUTANEOUS 06/29/21 07/18/21 Rx subcutaneous solution INFUSION DAILY 90 Days #108 ml metformin 500 mg tablet,extended 1,000 mg PO BID 90 Days #360 tablet 06/29/21 07/18/21 Rx release 24 hr Laboratory Tests 07/26/21 08:33 POC Capillary Glucose 236 mg/dl H mg/dl (65-105) Patient hx anesthesia problems: none Family hx anesthesia problems: none [facility] Past Medical History Medical History BPH (benign prostatic hyperplasia) COPD (chronic obstructive pulmonary disease) Duodenal ulcer Erectile dysfunction Erosive esophagitis GERD (gastroesophageal reflux disease) HLD (hyperlipidemia) HTN (hypertension) Insulin dependent type 2 diabetes mellitus Hemoglobin A1c was 8.9% on 01/26/2021. Patient uses an insulin pump. Obesity MARTHA on CPAP Tobacco abuse Former smoker. Continues to chew Nicorette gum. Surgical History Surgical History H/O colonoscopy History of orthopedic surgery Multiple orthopedic surgeries for fracture sustained in a fall off of a 30 foot scaffold, including repair of foot, shoulder, and elbow fractures. Family History Family History Mother Hypertension Family history of malignant neoplasm of ovary Father Family history of chronic obstructive pulmonary disease, Onset Age: 66 Other Depression Family history of arthritis Family history of lung disease Family history of mental disorder Social History Social History Social History: Surrogate decision maker: Margie Cassidy, . Code status: Full code. Smoking packs per day: 1 Smoking cigarettes per day: 20.0 Years smoked: 35 Smoking pack-years: 35.00 Smoking status: Former smoker Tobacco type: cigarettes Second hand tobacco smoke exposure: Yes Additional smoking assessment comments: CHEWS NICORET GUM Alcohol intake: never Substance use: never Substance use type: does not use Living arrangements: with family Additional living arrangements comments: The patient lives with his in [place]. 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 Gender identity (if verbalized by the patient): Male Spiritual care concerns: No Anes - Eval Final PreProcedure Day of Procedure 07/26/21 08:59 Patient weight: obese Heart: regular rate
[2021-07-26] MEDS: LACTATED RINGERS 1,000 ML 150 ML IV CONT (09:11)
--- NOTE | 2021-07-26 09:16 | SUR.PREOP ---
PT FEELING LIKE BLOOD SUGAR MIGHT BE LOW IN WAITING ROOM, BLOOD SUGAR CHECKED AND 236, PT BROUGHT INTO ENDOSCOPY ROOM, DR CADE NOTIFIED, PT GAVE HIMSELF 10 UNITS INSULIN FROM HIS INSULIN PUMP PER DR CADE'S APPROVAL, PT A&OX4, STATES FEELING GOOD WITH NO SYMPTOMS, AT BEDSIDE. EXPLAINED TO PT THAT WE WILL MONITOR HIS BLOOD SUGAR CLOSELY. PT STATES UNDERSTANDING.
--- NOTE | 2021-07-26 09:24 | PM.HPGS ---
History of Present Illness History of Present Illness Consent: Risks, benefits, and alternatives have been discussed and questions answered. Patient agrees to proceed with procedure. Chief complaint: duodenal ulcer, erosive esophagus Narrative: Dyllan Cassidy is a 71 year old male with duodenal ulcers and severe erosive esophagitis 03/2021 in setting of daily use of ibuprofen not longer taking. He is not asymptomatic. Review of Systems Constitutional: Constitutional: Denies headache(s) and Denies weakness Eyes: Eyes: Denies blurry vision ENT: Reports Normal hearing present, Denies headache(s) and Denies neck pain Cardiovascular: Cardiovascular: Denies chest pain and Denies dyspnea Respiratory: Respiratory: Denies dyspnea Gastrointestinal: Gastrointestinal: Reports no additional gastrointestinal complaints Genitourinary: Genitourinary: Denies dysuria Musculoskeletal: Musculoskeletal: Denies neck pain Integumentary/Breasts: Skin/Breast: Denies dry skin Neurologic: Reports Normal hearing present, Denies headache(s) and Denies weakness Psychiatric: Psychiatric: Denies anxiety Endocrine: Endocrine: Denies change in body appearance Hematologic/Lymphatic: Hematologic/Lymphatic: Denies easy bleeding Allergic/Immunologic: Allergic/Immunologic: Denies urticaria PMFSH Past Medical History Medical History BPH (benign prostatic hyperplasia) COPD (chronic obstructive pulmonary disease) Duodenal ulcer Erectile dysfunction Erosive esophagitis GERD (gastroesophageal reflux disease) HLD (hyperlipidemia) HTN (hypertension) Insulin dependent type 2 diabetes mellitus Hemoglobin A1c was 8.9% on 01/26/2021. Patient uses an insulin pump. Obesity MARTHA on CPAP Tobacco abuse Former smoker. Continues to chew Nicorette gum. Surgical History Surgical History H/O colonoscopy History of orthopedic surgery Multiple orthopedic surgeries for fracture sustained in a fall off of a 30 foot scaffold, including repair of foot, shoulder, and elbow fractures. Family History Family History Mother Hypertension Family history of malignant neoplasm of ovary Father Family history of chronic obstructive pulmonary disease, Onset Age: 66 Other Depression Family history of arthritis Family history of lung disease Family history of mental disorder Social History Social History Social History: Surrogate decision maker: Margie Cassidy, . Code status: Full code. Smoking packs per day: 1 Smoking cigarettes per day: 20.0 Years smoked: 35 Smoking pack-years: 35.00 Smoking status: Former smoker Tobacco type: cigarettes Second hand tobacco smoke exposure: Yes Additional smoking assessment comments: CHEWS NICORET GUM Alcohol intake: never Substance use: never Substance use type: does not use Living arrangements: with family Additional living arrangements comments: The patient lives with his in [place]. 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 Gender identity (if verbalized by the patient): Male Spiritual care concerns: No Meds Home Medications and Allergies Home Medications Medication Instructions Recorded Confirmed Type blood sugar diagnostic #10 each 12/07/19 07/18/21 History blood-glucose meter #1 each 12/07/19 07/18/21 History lancets 30 gauge #25 each 12/07/19 07/18/21 History subcutaneous insulin pump #1 each 03/24/20 07/18/21 History pen needle, diabetic 31 gauge x #30 each 06/15/20 07/18/21 History 5/16 atorvastatin 10 mg PO DAILY 03/18/21 07/18/21 History valsartan [Diovan] 320 mg PO DAILY 03/18/21 07/18/21 History acetaminophen [Tylenol] 325 mg PO ONCE PRN #30 tablet NS 03/21/21 07/18/21 Rx amlodipine 10 mg
[2021-07-26] MEDS: BENZOCAINE (*SP) 60 ML SPRAY CAN (HURRICAINE) 1 SPRAY MUCOUS MEM (09:29)
[2021-07-26 09:41] VITALS: BP 146/66; PULSE 74; RESP 18; O2SAT 100
[2021-07-26 09:47] LABS: Glucose Point of Care 203 mg/dl (65-105)
[2021-07-26 09:51] VITALS: BP 133/63; PULSE 69; RESP 17; O2SAT 100
[2021-07-26 10:01] VITALS: BP 145/80; PULSE 65; RESP 12; O2SAT 100
== END 2021-07-26 10:27 | disposition home or self-care (01) ==
PROVIDERS: PCP Family Medicine; Visit Provider Internal Medicine Gastroenterology
PROC: 0DJ08ZZ Inspection of Upper Intestinal Tract, Via Natural or Artificial Opening Endoscopic (ICD-10-PCS; CPT 43235; principal; 2021-07-26 09:30)
DX: Z09 Encounter for follow-up examination after completed treatment for conditions other than malignant neoplasm (principal); K22.10 Ulcer of esophagus without bleeding; K26.9 Duodenal ulcer, unspecified as acute or chronic, without hemorrhage or perforation; N40.0 Benign prostatic hyperplasia without lower urinary tract symptoms; J44.9 Chronic obstructive pulmonary disease, unspecified; E78.5 Hyperlipidemia, unspecified; I10 Essential (primary) hypertension; E11.9 Type 2 diabetes mellitus without complications; G47.33 Obstructive sleep apnea (adult) (pediatric); F17.210 Nicotine dependence, cigarettes, uncomplicated; Z79.4 Long term (current) use of insulin; E66.9 Obesity, unspecified; Z68.36 Body mass index [BMI] 36.0-36.9, adult
CPT/HCPCS: 43235; 82948; J2001; J2704; J7120

== ENCOUNTER → 2021-11-13 09:41 | Outpatient (CLI) | payer MEDICARE, OTHER, SELFPAY ==
--- NOTE | ~2021-11-13 | US_ITS ---
EXAMINATION: US aorta [facility] DATE: 11/13/2021 10:00 INDICATION: Abdominal aortic aneurysm screening, hypertension, diabetes, hypercholesterolemia, prior smoker TECHNIQUE: Grayscale, color Doppler, and pulsed Doppler images of the aorta and common iliac arteries were obtained. COMPARISON: None. FINDINGS: Maximum vascular dimensions are as follows: Proximal aorta: 2.5 cm Mid aorta: 2.3 cm Distal aorta: 2.3 cm Right common iliac artery: Obscured by bowel gas Left common iliac artery: Obscured by bowel gas There is no evidence of abdominal aortic aneurysm. IMPRESSION: 1. No sonographic evidence of abdominal aortic aneurysm. Reviewed, dictated and finalized at location A. FINDER TWISTING DEPARTMENT
--- NOTE | ~2021-11-13 | CT_ITS ---
EXAMINATION: CT diagnostic chest wo con EXAM DATE: 11/13/2021 10:15 INDICATION: R91.1 - Solitary pulmonary nodule. TECHNIQUE: Spiral CT of the chest without contrast. Axial, coronal and sagittal images of the chest were reviewed. Coronal maximum intensity pixel images of chest reviewed. The dose-length product ( DLP) for this examination was 396.09 mGy-cm. The exposure was tailored according to patient size (au to mA exposure control), and iterative reconstruction (ASIR) was used as additional dose reduction te chnique. There is no prior study for comparison. FINDINGS: There is mild to moderate emphysema and hyperinflation. Small amount of linear debris in t he airway. Persistent 3 mm right middle lobe nodule unchanged, a noncalcified granuloma. There are n o pleural or pericardial effusions. There is no mediastinal, hilar or axillary lymphadenopathy. T here is no pneumothorax. There are cardiac silhouette from hyperinflated lungs. There is mild coronar y arterial calcification, arterial sclerosis. Upper abdomen is unremarkable. There is mild thoraci c spondylosis without osteoblastic or osteolytic lesions identified. IMPRESSION: 1. Noncalcified granuloma. No suspicious findings. 2. Moderate emphysema and hyperinflation. Reviewed, dictated and finalized at location B. STRIAL ORGANIZATION MANAGER
== END ==
PROVIDERS: PCP Family Medicine; Visit Provider Family Medicine
DX: R91.1 Solitary pulmonary nodule (principal); Z13.6 Encounter for screening for cardiovascular disorders; J43.9 Emphysema, unspecified; R91.8 Other nonspecific abnormal finding of lung field
CPT/HCPCS: 71250; 76706

== ENCOUNTER 2022-12-05 10:10 | Outpatient (CLI) | payer MEDICARE, OTHER, SELFPAY ==
--- NOTE | ~2022-12-05 | CT_ITS ---
EXAMINATION:CT lung screening DATE: 12/05/2022 10:45 INDICATION: Lung cancer screening. Smoker who quit 8 years ago with 20 pack year history. TECHNIQUE: Computed tomography (CT) of the chest was performed without intravenous contrast. Automate d exposure control and iterative reconstruction technique were employed. The dose-length product (DLP ) was 405.97 mGy-cm. COMPARISON: Chest CT 11/13/2021 FINDINGS: There is moderate emphysema. There is mild atelectasis bilaterally. There is a stable 5 mm nodule in right middle lobe. No pleural effusion. The heart size is normal. There are coronary artery calcifications. No pericardial effusion. There are bridging endplate osteophytes at multiple levels in the spine, consistent with diffuse idiopathic skeletal hyperostosis (DISH). IMPRESSION: 1. Lung-RADS category 2: Benign appearance or behavior. Continue annual screening with noncontrast lo w-dose chest CT in 12 months. Reviewed, dictated and finalized at location A. TH/SAFETY JOB TITLES IMPRESSION: 1. Lung-RADS category 2: Benign appearance or behavior. Continue annual screeni ng with noncontrast low-dose chest CT in 12 months.
== END 2022-12-05 10:11 | disposition home or self-care (01) ==
PROVIDERS: PCP Family Medicine; Visit Provider Family Medicine
DX: Z12.2 Encounter for screening for malignant neoplasm of respiratory organs (principal); Z87.891 Personal history of nicotine dependence
CPT/HCPCS: 71271

== ENCOUNTER 2023-02-06 12:53 | Outpatient (CLI) | payer MEDICARE, OTHER, SELFPAY ==
--- NOTE | ~2023-02-06 | CT_ITS ---
EXAMINATION: CT sinus wo con DATE: 02/06/2023 13:13 INDICATION: Left sinonasal tumor TECHNIQUE: Computed tomography (CT) of the paranasal sinuses was performed without contrast. Iterativ e reconstruction technique was employed. Exam dose: 315.62 mGy-cm total exam DLP. COMPARISON: None FINDINGS: There is prominent asymmetric soft tissue thickening of the left nasal cavity, partially en gulfing the left inferior nasal turbinate, completely engulfing the left middle nasal turbinate, left middle meatus, extending into the left ostiomeatal unit and left maxillary ostium, with complete opa cification of the left maxillary sinus and extensive soft tissue opacification of the left ethmoid ai r cells. Soft tissue density also extends into the left frontal area with complete opacification of t he left frontal sinus. Opacification of the sinuses may be due to tumor and/or sinus obstruction. There is rightward bowing of the nasal septum. The right middle and inferior nasal turbinates are unremarkable. The right maxillary sinus is normall y developed and aerated. The right ostiomeatal unit is patent. Right ethmoid air cells are clear. Min imal mucosal soft tissue thickening and inferomedial right frontal sinus. The right frontal sinus is otherwise unremarkable. The mastoid air cells are normally developed and aerated. No fracture, bone destruction or expansion of the paranasal sinus murcia. 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 Reviewed, dictated and finalized at location B. 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
== END 2023-02-06 12:54 | disposition home or self-care (01) ==
LOC: ANHIMG 12:57
PROVIDERS: PCP Family Medicine; Visit Provider Otolaryngology
DX: D49.1 Neoplasm of unspecified behavior of respiratory system (principal)
CPT/HCPCS: 70486

== ENCOUNTER 2023-03-07 10:03 | Outpatient (CLI) | payer MEDICARE, OTHER, SELFPAY ==
--- NOTE | 2023-03-07 10:15 | ECG_ITS ---
Measurements Intervals [place] Rate: 79 P: 76 MN: 187 QRS: 38 QRSD: 149 T: 31 QT: 402 QTc: 462 Interpretive Statements SINUS RHYTHM RIGHT BUNDLE BRANCH BLOCK COMPARED TO ECG 03/18/2021 09:00:34 NO SIGNIFICANT CHANGES Electronically Signed On 03-07-2023 14:21:42 CDT by Modesta Daley M.D.
[2023-03-07 10:50] LABS: Anion Gap 5 mmol/L (8-16); Blood Urea Nitrogen 16 mg/dL (9-20); Carbon Dioxide 31 mmol/L (22-30); Chloride 103 mmol/L (98-107); Estimated Glomerular Filt Rate > 60; Glucose 119 mg/dL (65-110); Potassium 3.8 mmol/L (3.4-5.0); Sodium 139 mmol/L (137-145)
== END 2023-03-07 10:04 | disposition home or self-care (01) ==
LOC: ANHSURGERY 10:11
PROVIDERS: Anesthesiology; PCP Family Medicine; Visit Provider Otolaryngology
DX: E11.65 Type 2 diabetes mellitus with hyperglycemia (principal); Z79.4 Long term (current) use of insulin; I10 Essential (primary) hypertension; I45.10 Unspecified right bundle-branch block
CPT/HCPCS: 36415; 80048; 93005

== ENCOUNTER 2023-03-12 01:22 | Day surgery (SDC) | payer MEDICARE, OTHER, SELFPAY ==
--- NOTE | 2023-03-06 12:27 | PC.NURSE ---
Report to the Outpatient Waiting Room, entrance under the green pavilion located off [facility], at time __0630 on date . Planned Procedure Time: __829 . Time changes happen often and if your time is changed the preop area will call you the afternoon before. - You and your visitor will be asked to self-screen and do not enter if you have any COVID symptoms. - Only one visitor is requested with a max of two and NO children visitors are allowed at this time. - The patient visitor may be requested to leave or wait in car when not with patient due to distancing restrictions. - A mask is optional within the hospital at this time. Patients may have clear liquids (water, carbonated beverages, clear teas, apple juice) until 3 hours prior to surgery with a maximum of 20 ounces. - No food from midnight until time of surgery - Infants may have breast milk until 4 hours before surgery, formula 6 hours prior to surgery. - Children will be allowed to drink immediately following surgery. If applicable, please bring a bottle or sippy cup to assist with drinking. Juice, water, soda, and popsicles are readily available. For infants on formula, please bring formula the day of surgery. Pacifiers are allowed. Take the following medications with a SIP of water the morning of surgery: ___AMLODIPINE,METOPROLOL DO NOT STOP ANY OF YOUR OTHER PRESCRIPTION MEDICATIONS PRIOR TO SURGERY ?EXCEPT THE FOLLOWING Medications to discontinue per physician NONE Date to take last dose Please no make-up, nail wallisian, hairspray, perfume, deodorant, or body powder the day of surgery. No jewelry (including any body piercings) or valuables the day of surgery, leave them at home. Please take a shower or bath the night before, or the morning of, surgery with an antibacterial soap. Wear comfortable, loose fitting clothing. Children are encouraged to wear pajamas. - Jewelry must be removed prior to entering the operating room. Rings and piercings that are not removed may be cut off. - The hospital will not accept responsibility for valuables. - Please leave all valuables, including medications, at home the day of surgery. If you are going home after surgery, a licensed services delivery driver must drive you home. - NO public transportation without another adult if you receive anesthesia. - We recommend that an adult stay with you for 24 hours following discharge. - We also recommend that you do not drive, make important decision, drink alcoholic beverages, or take any drugs that were not prescribed by your health care provider for at least 24 hours after your discharge time. For Pediatric surgeries, we recommend two adults accompany the child home. Follow any additional instructions given to you from your surgeon. If you or anyone in your household have experienced Covid symptoms in the past week, please notify your surgeon or the nurse liaison at the phone number below for possible testing. Telephone instructions given to __PATIENT and asked if any additional questions and then verbalized understanding. Patient advised to call surgeon office or pre surgery nurse liaison [phone] if any additional questions.
[2023-03-06 12:39] VITALS: BMI 37.2
--- NOTE | 2023-03-11 14:04 | WPDANESEPPF ---
Anes - Initial Pre Proc Eval Procedure: Operation Date: 03/12/23 09:00 Proposed Procedures p Image Guided Left Maxillary Antrostomy with Tissue Removal, Left Argueta Luiz, Left Total Ethmoidectomy, Bilateral Frontal Sinusotomy, Right Sphenoidotomy with Tissue Removal - Willi Land MD s Endoscopic Septoplasty - Willi Land MD Date/Time: 03/11/23 14:04 Surgeon: Willi Land MD Pre Op Diagnosis: Chronic Sinusitis Patient Data Age: 72 Gender: M Height: 1.88 m Weight: 131.55 kg Allergies Allergy/AdvReac Type Severity Reaction Status Date / Time oxycodone Allergy Unknown Hives Verified 03/12/23 07:52 Home Medications Medication Instructions Recorded Confirmed Type blood-glucose meter (OneTouch #1 ea 12/07/19 03/12/23 History UltraMini kit) lancets 30 gauge (OneTouch Delica #25 ea 12/07/19 03/12/23 History Lancets) subcutaneous insulin pump (MiniMed #1 ea 03/24/20 03/12/23 History 630G Insulin Pump) pen needle, diabetic 31 gauge x #30 ea 06/15/20 03/12/23 History 5/16 (BD Ultra-Fine Short Pen Needle) blood-glucose meter (Pogo #1 ea 11/21/21 03/12/23 Rx Automatic Blood Glucose System) lancets 30 gauge and blood glucose #50 ea 11/21/21 03/12/23 Rx strips combo pack (Pogo Automatic Test Cartridge) amlodipine 10 mg tablet See Rx Instructions .Route 01/15/22 03/12/23 Rx .COMPLEX #90 tabs irbesartan 300 mg tablet See Rx Instructions .Route 06/18/22 03/12/23 Rx .COMPLEX #90 tabs blood sugar diagnostic (OneTouch #300 ea 08/16/22 03/12/23 Rx Verio test strips) atorvastatin 10 mg tablet See Rx Instructions .Route 08/17/22 03/12/23 Rx .COMPLEX #90 tabs tamsulosin 0.4 mg capsule (Flomax) 0.4 mg PO DAILY #90 caps 10/29/22 03/12/23 Rx metoprolol succinate 25 mg 25 mg PO DAILY #90 tabs 02/01/23 03/12/23 Rx tablet,extended release 24 hr metformin 500 mg tablet,extended See Rx Instructions .Route 02/12/23 03/12/23 Rx release 24 hr .COMPLEX #360 tabs glucagon 1 mg/0.2 mL subcutaneous 1 mg (0.2 mL) subcut ONCE #0.4 mL 02/21/23 03/12/23 Rx auto-injector (Gvoke HypoPen 2-Pack) semaglutide 1 mg/dose (4 mg/3 mL) 1 mg (0.75 mL) subcut WEEKLY 90 02/21/23 03/12/23 Rx subcutaneous pen injector (Ozempic) days #9 mL insulin aspart U-100 100 unit/mL See Rx Instructions .Route 02/27/23 03/12/23 Rx subcutaneous solution .COMPLEX #100 mL Patient hx anesthesia problems: none Family hx anesthesia problems: none Results Review: All pre-operative results and documents have been reviewed as part of the pre-operative evaluation. [facility] Past Medical History Medical History (Updated 03/11/23 @ 15:32 by Willi Land MD) Acute kidney injury BPH (benign prostatic hyperplasia) Chronic pain Related to falling off a 30 foot scaffold in which he fractured 30 to bones. Previously on hydrocodone, he now takes ibuprofen and acetaminophen to manage the pain. COPD (chronic obstructive pulmonary disease) Duodenal ulcer Erectile dysfunction Erosive esophagitis Excessive cerumen in both ear canals Former smoker GERD (gastroesophageal reflux disease) HLD (hyperlipidemia) HTN (hypertension) Insulin dependent type 2 diabetes mellitus Hemoglobin A1c was 8.9% on 01/26/2021. Patient uses an insulin pump. 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 Continues to chew Nicorette gum. Type 2 diabetes mellitus with hyperglycemia, with long-term current use of insulin Surgical History Surgical History H/O colonoscopy History of orthopedic surgery Multiple orthopedic surgeries for fracture sustained in a fall off of a 30 foot scaffold, including repair of foot, shoulder, and elbow fractures. Family History Family History (Updated 01/23/23 @ 13:05 by Sabrina Rowan CMA) Mother Hypertension Family history of malignant neoplasm of ovary Father
--- NOTE | 2023-03-11 15:30 | PM.IMHP ---
H&P: HPI History of Present Illness Date/Time: 03/11/23 15:30 Chief Complaint: septal deviation turbinate hypertrophy sinonasal tumor nasal obstruction nasal congestion chronic sinusit Narrative: planned procedure Review of Systems Review of Systems: All systems reviewed & are unremarkable except as noted in HPI and below PMFSH Past Medical History Medical History (Updated 03/11/23 @ 15:32 by Willi Land MD) Acute kidney injury BPH (benign prostatic hyperplasia) Chronic pain Related to falling off a 30 foot scaffold in which he fractured 30 to bones. Previously on hydrocodone, he now takes ibuprofen and acetaminophen to manage the pain. COPD (chronic obstructive pulmonary disease) Duodenal ulcer Erectile dysfunction Erosive esophagitis Excessive cerumen in both ear canals Former smoker GERD (gastroesophageal reflux disease) HLD (hyperlipidemia) HTN (hypertension) Insulin dependent type 2 diabetes mellitus Hemoglobin A1c was 8.9% on 01/26/2021. Patient uses an insulin pump. [facility] current use of insulin Obesity MARTHA on CPAP PONV (postoperative nausea and vomiting) Tobacco abuse Former smoker. Continues to chew Nicorette gum. Type 2 diabetes mellitus with hyperglycemia, with long-term current use of insulin Surgical History Surgical History H/O colonoscopy History of orthopedic surgery Multiple orthopedic surgeries for fracture sustained in a fall off of a 30 foot scaffold, including repair of foot, shoulder, and elbow fractures. Family History Family History (Updated 01/23/23 @ 13:05 by Sabrina Rowan CMA) Mother Hypertension Family history of malignant neoplasm of ovary Father Family history of chronic obstructive pulmonary disease, Onset Age: 66 Grandparent Cancer Grandparent Cancer Other Depression Family history of arthritis Family history of lung disease Family history of mental disorder Social History Social History Social History: Surrogate decision maker: Margie Cassidy, . Code status: Full code. Smoking packs per day: 1 Smoking cigarettes per day: 20.0 Years smoked: 30 Smoking pack-years: 30.00 Smoking status: Former smoker Tobacco type: cigarettes Second hand tobacco smoke exposure: Yes Smoking end date: 12/02/12 Additional smoking assessment comments: Quit smoking 2005. Smoked 37 years, 1ppd. Alcohol intake: never Substance use: never Substance use type: does not use Living arrangements: with family Additional living arrangements comments: The patient lives with his in [place]. 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 Gender identity (if verbalized by the patient): Male Spiritual care concerns: No Meds Home Medications and Allergies Home Medications Medication Instructions Recorded Confirmed Type blood-glucose meter (OneTouch #1 ea 12/07/19 02/25/23 History UltraMini kit) lancets 30 gauge (OneTouch Delica #25 ea 12/07/19 02/25/23 History Lancets) subcutaneous insulin pump (MiniMed #1 ea 03/24/20 02/25/23 History 630G Insulin Pump) pen needle, diabetic 31 gauge x #30 ea 06/15/20 02/25/23 History 5/16 (BD Ultra-Fine Short Pen Needle) blood-glucose meter (Pogo #1 ea 11/21/21 02/25/23 Rx Automatic Blood Glucose System) lancets 30 gauge and blood glucose #50 ea 11/21/21 02/25/23 Rx strips combo pack (Pogo Automatic Test Cartridge) amlodipine 10 mg tablet See Rx Instructions .Route 01/15/22 03/06/23 Rx .COMPLEX #90 tabs irbesartan 300 mg tablet See Rx Instructions .Route 06/18/22 03/06/23 Rx .COMPLEX #90 tabs blood sugar diagnostic (OneTouch #300 ea 08/16/22 02/25/23 Rx Verio test strips) atorvastatin 10 mg tablet See Rx Instructions .Route 08/17/22 03/06/23 Rx .COMPLEX #90 ta
[2023-03-12] VITALS (13 sets, daily range): BP systolic 128–148; BP diastolic 63–83; PULSE 54–77; RESP 10–16; TEMP 36.3–36.8; O2SAT 94–100
--- NOTE | 2023-03-12 07:19 | WPDHPUPDATE1 ---
History and Physical Update Update Date/Time: 03/12/23 07:19 History and Physical has been reviewed, including an updated exam of the patient. There are NO changes in the patient's condition. Risks, benefits, and alternatives have been discussed and questions answered. Patient agrees to proceed with procedure.
[2023-03-12] MEDS: LACTATED RINGERS 1,000 ML 30 ML IV CONT ×2 (07:40→11:28)
[2023-03-12] MEDS: ACETAMINOPHEN 500 MG TABLET 1000 MG PO (07:42)
[2023-03-12 07:48] LABS: Glucose Point of Care 213 mg/dl (65-105)
[2023-03-12] MEDS: ceFAZolin 3 GM/D5W 100 ML 100 ML IVPB (09:05)
[2023-03-12] MEDS: OXYMETAZOLINE HCL 0.05% NAS 15 ML BTL (*BKC) 1 SPRAY NASAL (09:26)
[2023-03-12] MEDS: LIDO 1%/EPINEPHRINE 1:100,000 50 ML VIAL 15 ML INFILTRATE (09:40)
[2023-03-12 11:44] LABS: Glucose Point of Care 204 mg/dl (65-105)
[2023-03-12] MEDS: fentaNYL CITRATE INJ (*CRX) 100 MCG/2 ML VIAL 25 MCG IV PUSH ×6 (11:50→12:24)
[2023-03-12] MEDS: HYDROmorphone HCL INJ (*CRX) 1 MG/ML SYR 0.25 MG IV PUSH ×4 (12:10→12:25)
[2023-03-12] MEDS: HYDROcodone/acetaminophen (*CRX) 5-325 MG TABLET 1 TAB PO (13:29)
--- NOTE | 2023-03-12 16:52 | P.OP_ITS ---
Procedure Note - Detailed Date of Procedure 03/12/23 Pre-op Diagnosis Chronic Sinusitis Sinonasal tumor nasal obstruction nasal congestion turbinate hypertrophy Post-op Diagnosis Same Procedure Performed bilateral biopsy nasal biopsy, left middle turbinectomy, left maxillary antrostomy tissue removal, left frontal sinusotomy, left total ethmoidectomy, left resection of sinonasal tumor, outfracture inferior turbinate Surgeon Willi Land MD Anesthesia General Indications see above Findings large left-sided tumor frozen consistent with atypical cells right-sided no atypical cells on biopsy. Abnormal tissue left on skull base near orbit orbital dehiscence noted preoperatively confirmed intraoperatively Description of Procedure patient identified consent verified. Patient brought operating. Time-out p erformed. General anesthesia induced endotracheal tube secured airway. Patient prepped reposition. Image guidance initiated. Second time-out performed. Afrin-soaked pledgets placed in the nasal passages allowed to sit for 5 minutes then removed. 0 degree scope and a lysed image guidance utilized throughout the case severe right septal deviation. Right posterior tissue near the sphenoid os biopsies sent for path confirmed to be the tip cells likely polyps. Left-sided tumor biopsied came back 30-40 minutes later as atypical cells. Left-sided debridement of tumor curved with microdebrider Kimberly. Tumor appeared to be emanating from the left middle turbinate this was removed. Coagulated with Bovie suction electrocautery. Left maxillary antrostomy performed with backbiter straight through cut down biting stump burger and microdebrider. No tumor within the max intubated mucus. Same the frontal frontal sinusotomy performed 70 degree scope image guidance Cobra only mucus no tumor. Tumor was largely located along the skull base along the orbit. There was orbital dehiscence as well. Ethmoidectomy performed with microdebrider Kerrison straight through cut. Then the case no pack placed. Total blood loss about 25 cc. There was remnant tumor from the posterior ethmoid along the skull base anteriorly to the frontal outflow and along the orbit as well. The septum appeared free of any tumor. The decision was made to stop the procedure given that there was perhaps orbital involvement or at least along orbit and skull base which was not able to removed. Care the patient Anesthesiology. Bleeding was controlled no pack placed. Total blood loss 125 cc. No obvious complications. Patient taken to PACU. Estimated Blood Loss -125.0 Drains No Packing Yes (Novapak) Pathology None sent Complications No immediate complications Condition Stable Disposition PACU [facility] Billing Surgery - Charge Forward: Surgery Billing
== END 2023-03-12 14:32 | disposition home or self-care (01) ==
PROVIDERS: PCP Family Medicine; Visit Provider Otolaryngology
PROC: (CPT 31267; principal; 2023-03-12 08:30)
DX: D14.0 Benign neoplasm of middle ear, nasal cavity and accessory sinuses (principal); J32.9 Chronic sinusitis, unspecified; J34.2 Deviated nasal septum; J34.89 Other specified disorders of nose and nasal sinuses; R09.81 Nasal congestion; J34.3 Hypertrophy of nasal turbinates; I10 Essential (primary) hypertension; E78.5 Hyperlipidemia, unspecified; E11.9 Type 2 diabetes mellitus without complications; J44.9 Chronic obstructive pulmonary disease, unspecified; N40.0 Benign prostatic hyperplasia without lower urinary tract symptoms; G89.29 Other chronic pain; G47.33 Obstructive sleep apnea (adult) (pediatric); Z87.891 Personal history of nicotine dependence; E66.9 Obesity, unspecified; Z68.38 Body mass index [BMI] 38.0-38.9, adult; Z79.4 Long term (current) use of insulin; Z96.41 Presence of insulin pump (external) (internal); Z79.84 Long term (current) use of oral hypoglycemic drugs; Z79.899 Other long term (current) drug therapy
CPT/HCPCS: 31267; 31253; 61782; 30999; 30930; 82948; 88304; 88305; 88331; 88333; A9270; J0690; J1100; J1170; J2250; J2405; J2704; J2710; J3010; J7120

== ENCOUNTER 2024-01-29 08:50 | Outpatient (CLI) | payer MEDICARE, OTHER, SELFPAY ==
--- NOTE | ~2024-01-29 | CT_ITS ---
CT Scan of the Chest without Contrast: Clinical Indication: Lung cancer screening, smoking history Technique: Contiguous sections were acquired throughout the chest without intravenous contrast. Dose reduction technique was used on this scan by utilizing automated exposure control and iterative recon struction technique. The dose-length product (DLP) was 382.76 mGy-cm. COMPARISON: 12/05/2022 Findings: There is no evidence of any significant mediastinal, hilar or axillary lymphadenopathy. The mediastin al soft tissues appear normal. There is no evidence of pleural or pericardial effusion. Stable 6 mm right middle lobe pulmonary nodule. Images through the upper abdomen reveal no abnormalities. Impression: Lung RADS 2: Benign appearance. 12 month follow-up screening CT advised. Reviewed, dictated and finalized at location . LIANCE CLERK Impression: Lung RADS 2: Benign appearance. 12 month follow-up screening CT advised.
== END 2024-01-29 08:51 | disposition home or self-care (01) ==
PROVIDERS: PCP Family Medicine; Referring Provider Nurse Practitioner Family; Visit Provider Family Medicine
DX: Z12.2 Encounter for screening for malignant neoplasm of respiratory organs (principal); Z87.891 Personal history of nicotine dependence
CPT/HCPCS: 71271

== ENCOUNTER 2024-02-13 11:08 | Observation (INO) | payer MEDICARE, OTHER, SELFPAY ==
[2024-02-13] VITALS (16 sets, daily range): BP systolic 114–186; BP diastolic 58–100; PULSE 70–88; RESP 15–23; TEMP 36.5; O2SAT 96–100
--- NOTE | ~2024-02-13 | MR_ITS ---
MRI of the brain Clinical History: Transient extremity weakness Technique: Axial and sagittal T1-weighted images were acquired. These were followed by axial T2-weigh natalia, diffusion weighted, gradient, and FLAIR images. Findings: There is no acute infarct, internal hemorrhage, or mass lesion. There are mild chronic whit e matter changes in the periventricular matter bilaterally. Ventricles and subarachnoid spaces are mildly dilated. Orbits are unremarkable. There is left frontal and left ethmoid sinus disease. There is right sphenoid sinus disease. Remaining paranasal sinuses a nd mastoid air cells are clear. Major intracranial flow voids appear intact. Sagittal midline structures are intact. No abnormal postcontrast enhancement identified. IMPRESSION: No acute intracranial abnormality. Mild chronic microvascular ischemic change. Sinus disease, as above. Reviewed, dictated and finalized at [facility].
--- NOTE | ~2024-02-13 | CT_ITS ---
EXAMINATION: CTA brain carotid DATE: 02/13/2024 21:06 CDT INDICATION: TIA TECHNIQUE: Computed tomographic angiography (CTA) of the head was performed without and with 100 mL O mnipaque-350 intravenous contrast. CTA of the neck was performed with intravenous contrast. The dose- length product was 1357.79 mGy-cm. Maximum intensity projection and volume rendered 3D-reconstruction s were created by the technologist on a separate workstation. COMPARISON: CT brain dated 02/13/2024. FINDINGS: HEAD CTA: There is mild intracranial atherosclerosis involving the cavernous segments of the internal carotid arteries. No significant stenosis, occlusion or aneurysm. The anterior communicating artery is present. No vascular malformations are identified. Incidental note is made of a common A2 trunk wi th distal bifurcation shared by right and left anterior cerebral arteries. Moderate sinusitis. NECK CTA: Borderline size mediastinal lymph nodes, likely reactive. The origins of the vertebral and common carotid arteries are patent. There is minimal atherosclerotic change of the right carotid bulb without significant luminal narrowing. There is emphysema. There is 0% stenosis of the proximal right internal carotid artery relative to normal distal artery l umen diameter (NASCET criteria). There is 0% stenosis of the proximal left internal carotid artery re lative to normal distal artery lumen diameter. IMPRESSION: 1: No significant vascular abnormality of the head or neck. Reviewed, dictated and finalized at location A.
--- NOTE | ~2024-02-13 | XR_ITS ---
Clinical Indication: Weakness PA and lateral views of the chest: Comparison: 11/16/2013 Findings: The lungs are clear, without evidence of focal consolidation or pleural effusion. Cardiome diastinal silhouette is within normal limits. Bones and soft tissues are unremarkable. Impression: Normal chest. Reviewed, dictated and finalized at [facility]. Impression: Normal chest.
--- NOTE | ~2024-02-13 | CT_ITS ---
Non-contrast Head CT History: Brain tumor Technique: Axial non-contrast imaging of the brain was performed. Dose reduction technique was used on this scan by utilizing automated exposure control and iterative reconstruction technique. The dose -length product (DLP) was 681.00 mGy-cm. Findings: There is no evidence of intracranial hemorrhage, mass lesion, or acute infarct. Brain par enchyma appears normal. The ventricles and subarachnoid spaces are normal in size. The calvarium ap pears normal. Left frontal and left ethmoid sinus disease noted. The remaining visualized paranasal s inuses and mastoid air cells are clear. Impression: No intracranial abnormality seen. Given history of brain tumor, consider pre and postcontrast MR for further evaluation for brain lesion, as indicated. Sinus disease, as above. Reviewed, dictated and finalized at [facility]. Impression: No intracranial abnormality seen. Given history of brain tumor, consider pre an d postcontrast MR for further evaluation for brain lesion, as indicated. Sinus disease, as above.
--- NOTE | 2024-02-13 12:38 | ED.RECABL ---
HPI - Recheck/Abnormal Lab/Rx General Chief Complaint: Recheck/Abnormal Lab/Rx <Raji Ricks APRN - Last Filed: 02/13/24 13:13> Stated Complaint: elevated BP <Raji Ricks APRN - Last Filed: 02/13/24 13:13> Time Seen by Provider: 02/13/24 12:38 <Raji Ricks APRN - Last Filed: 02/13/24 13:13> Focused HPI: Alger is a 73-year-old male patient presenting to the ER today with complaints of elevated blood pressure, feeling weak, fatigued, reports occasional chest pain and some shortness of breath. Reports that he has had a brain tumor partially removed and is concerned that it may be growing causing his symptoms. He is unable to tell me what his blood sugars have been running. He denies any URI symptoms. Takes amlodipine, irbesartan, and metoprolol for his blood pressure. History of hypertension, brain tumor, COPD, high cholesterol, and type 2 diabetes. General: Well-developed, morbidly obese, in no apparent distress Head: Normocephalic, atraumatic. Cardio: Regular rate and rhythm, s1 and s2 normal, no murmur appreciated. Resp: Clear to auscultation bilaterally, no rhonchi, rales, wheezing or rubs. Extremities: No deformity, 1+ pitting edema in bilateral lower extremities, no cyanosis, capillary refill less than 2 seconds, peripheral pulses palpable and strong. Integumentary: Outlook, warm, and dry, intact without lesion, no rashes. Patient screened in triage and initial orders placed. Additional care and disposition to be based upon diagnostic testing and treatment. <Raji Ricks APRN - Last Filed: 02/13/24 13:13> Source: patient <Raji Ricks APRN - Last Filed: 02/13/24 13:13> Mode of arrival: ambulatory <Raji Ricks APRN - Last Filed: 02/13/24 13:13> Limitations: no limitations <Raji Ricks APRN - Last Filed: 02/13/24 13:13> History of Present Illness HPI narrative: Patient is a 53-year-old male with history of hypertension, diabetes here with elevated blood pressure and neurologic symptoms. He notes that today he was at a physical therapy appointment around 930 and they checked his blood pressure and heart rate both of which were elevated. He states that his blood pressure was greater than 230 systolic. He does have high blood pressure. He takes antihypertensives, typically takes them in the morning, unsure of what doses he is on. He states that is typically fairly well controlled, falls his blood pressure closely with his primary care doctor. He denies any chest pain or shortness of breath with his elevated blood pressure reading, did drive home and then after discussion with his and primary care doctor came into the emergency department for evaluation. He does states that last night he was in the bathtub and on attempt to get out of the bath both of his arms felt profoundly weak as well as his bilateral legs. He states he had to use his hands to lift his legs out of bathtub. He had some associated chest tightness and shortness of breath when this was occurring. He looked in the mirror and did not notice any facial droop. He states that after several minutes the symptoms seemed to fully resolve and he was able to get dressed. He denies any prior history of stroke. He does note that he had a sinonasal tumor which was operated on by Dr. Land. This tumor was believed to be benign and he is following this routinely with Dr. Land. He denies any current chest pain, shortness of breath, upper or lower extremity drift. <Sindhu Pearson MD - Last Filed: 02/13/24 19:42> Related Data Home Medications: Home Medications Medication Instructions Recorded Confirmed lancets 30 gauge (OneTouch Delica #25 ea 12/07/19 01/22/24 Lancets) subcutaneous insulin pump (MiniMed #1 ea 03/24/20 01/22/24 630G Insulin Pump) <Raji Ricks APRN - Last Filed: 02/13/24 13:13> Allergies/Adverse Reactions: Allergies Allergy/AdvRe
--- NOTE | 2024-02-13 13:04 | ECG_ITS ---
Measurements Intervals [place] Rate: 80 P: 65 OR: 176 QRS: -35 QRSD: 152 T: 39 QT: 405 QTc: 469 Interpretive Statements SINUS RHYTHM LEFT AXIS DEVIATION RIGHT BUNDLE BRANCH BLOCK ABNORMAL ECG COMPARED TO ECG 03/07/2023 11:28:51 LEFT-AXIS DEVIATION NOW PRESENT Electronically Signed On 02-13-2024 13:18:43 CDT by Fish Wiggins D.O.
[2024-02-13 13:24] LABS: Basophils Absolute Auto 0.1 K/mm3 (0.0-0.1); Basophils Percent Auto 0.7 % (0.2-1.2); Eosinophils Absolute Auto 0.3 K/mm3 (0-0.3); Eosinophils Percent Auto 3.7 % (0-4.4); Hematocrit 45.5 % (42.0-52.0); Hemoglobin 14.6 g/dL (14.0-18.0); Immature Granulocyte Absolute 0.05 K/mm3 (0.00-0.031); Immature Granulocyte Percent A 0.6 % (0-0.5); Lymphocytes Absolute Auto 1.32 K/mm3 (0.9-3.2); Lymphocytes Percent Auto 15.1 % (18.3-44.2); Mean Corpuscular HGB Conc 32.1 g/dl (32-36); Mean Corpuscular Hemoglobin 28.7 pg (26-34); Mean Corpuscular Volume 89.4 fl (80-100); Mean Platelet Volume 9.3 fl (7.4-10.4); Monocytes Absolute Auto 0.7 K/mm3 (0.1-0.6); Monocytes Percent Auto 7.9 % (2.6-8.5); Neutrophils Absolute Auto 6.3 K/mm3 (1.3-6.7); Platelet Count Result 180 k/mm3 (150-375); Red Blood Count 5.09 M/mm3 (4.6-6.20); White Blood Count 8.8 K/mm3 (4.5-10.0)
[2024-02-13 13:31] LABS: Appearance Urine Clear (Clear); Bacteria Urine None Seen /hpf; Bilirubin Urine Negative (Negative); Blood Urine Non-Hemolyzed Trace (Negative); Color Urine Yellow (Yellow); Glucose Urine UA Negative (Negative); Ketones Urine Negative (Negative); Leukocyte Esterase Ur Negative LEU/UL (Negative); Nitrate Urine Negative (Negative); Non Pathogenic Casts 0-2; Protein Urine 2+ mg/dL (Negative); RBC Urine 0-2 /hpf (0-2); Specific Grav Ur 1.011 (1.001-1.035); Squamous Epithelial Cell Urine None Seen /hpf (Few); Urobilinogen Urine 0.2 mg/dL (<2.0); WBC Urine 0-5 /hpf (0-3)
[2024-02-13 13:34] LABS: Alanine Aminotransferase 19 U/L (6-50); Albumin Level 4.4 g/dL (3.5-5.1); Alkaline Phosphatase 85 U/L (38-126); Anion Gap 9 mmol/L (8-16); Aspartate Amino Transferase 20 U/L (17-59); Bilirubin,Total 1.5 mg/dL (0.2-1.3); Blood Urea Nitrogen 17 mg/dL (9-20); Calcium 9.1 mg/dL (8.4-10.2); Carbon Dioxide 25 mmol/L (22-30); Chloride 105 mmol/L (98-107); Estimated CRCL calculation 72 ml/min; Estimated Glomerular Filt Rate 60; Glucose 85 mg/dL (65-110); Potassium 3.9 mmol/L (3.4-5.0); Sodium 139 mmol/L (137-145)
[2024-02-13 13:40] LABS: Add Urine Microscopic? YES
[2024-02-13 14:24] LABS: Prothrombin Time 13.4 Seconds (11.1-14.7)
[2024-02-13 14:25] LABS: Partial Thromboplastin Time 31.5 Seconds (22.3-36.8)
[2024-02-13 14:34] LABS: NT Pro B Type Natriuretic Pept 106 pg/mL (19.9-100); Troponin I < 0.012 ng/mL (0.000-0.034)
[2024-02-13] MEDS: ONDANSETRON INJ 4 MG/2 ML VIAL IV PUSH (17:15)
--- NOTE | 2024-02-13 20:02 | PM.IMHP ---
H&P: HPI History of Present Illness Date/Time: 02/13/24 20:02 Chief Complaint: Elevated blood pressure. This is a 73-year-old male patient with a past medical history of chronic hypertension status post brain tumor surgery COPD hyperlipidemia type 2 diabetes mellitus the emergency room complaining of elevated blood pressure feeling weak and fatigued and some shortness of breath. Patient said that last night when he was in his bed appears unable to get out of the bathtub and feeling weak. The weakness lasted for couple of minutes in his lower extremities and get later got resolved. Patient is awake alert not in acute distress. Denies any fever chills dizziness lightheadedness no blood within the chest pains and shortness of breath no cough no nausea no vomiting no diarrhea no dysuria no muscle and joint pains. Vital signs in the emergency room were stable. CBC CMP were mainly in range. PTT INR were unremarkable. Urinalysis showed 2+ protein. No bacteriuria no pyuria. CT head showed no intracranial abnormality seen. Chest x-ray showed normal chest. CT of head and neck were unremarkable per ER read. EKG showed sinus rhythm left axis deviation right bundle branch block. Neurology consultation was called from the emergency room. Patient admitted for MRI of the brain. Review of Systems Review of Systems: A 12 point review of system is done and is only positive what is dictated in the history of present illness. [facility] Past Medical History Medical History Achilles tendinitis of right lower extremity Acute kidney injury Arthritis of right shoulder region BPH (benign prostatic hyperplasia) Chronic pain Related to falling off a 30 foot scaffold in which he fractured 30 to bones. Previously on hydrocodone, he now takes ibuprofen and acetaminophen to manage the pain. COPD (chronic obstructive pulmonary disease) Duodenal ulcer Erectile dysfunction Erosive esophagitis Excessive cerumen in both ear canals Former smoker GERD (gastroesophageal reflux disease) HLD (hyperlipidemia) HTN (hypertension) Insulin dependent type 2 diabetes mellitus Hemoglobin A1c was 8.9% on 01/26/2021. Patient uses an insulin pump. 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 Continues to chew Nicorette gum. Type 2 diabetes mellitus with hyperglycemia, with long-term current use of insulin Surgical History Surgical History H/O colonoscopy History of nasal surgery 03/2023, to remove tumor, they were unable to remove all of it History of orthopedic surgery Multiple orthopedic surgeries for fracture sustained in a fall off of a 30 foot scaffold, including repair of foot, shoulder, and elbow fractures. Family History Family History Mother Hypertension Family history of malignant neoplasm of ovary Father Family history of chronic obstructive pulmonary disease, Onset Age: 66 Grandparent Cancer Grandparent Cancer Other Depression Family history of arthritis Family history of lung disease Family history of mental disorder Social History Social History Social History: Surrogate decision maker: Margie Cassidy, . Code status: Full code. Smoking packs per day: 1 Smoking cigarettes per day: 20.0 Years smoked: 30 Smoking pack-years: 30.00 Smoking status: Former smoker Tobacco type: cigarettes Second hand tobacco smoke exposure: Yes Smoking end date: 12/02/12 Additional smoking assessment comments: Quit smoking 2005. Smoked 37 years, 1ppd. Alcohol intake: never Substance use: former Substance use type: marijuana Last use: over 50 years ago Lack of Tra
[2024-02-13 21:20] LABS: Glucose Point of Care 296 mg/dl (65-105)
[2024-02-13] MEDS: INSULIN ASPART (*BKC) 100 UNITS/ML SUB-Q (21:29)
[2024-02-14] VITALS: BMI 38.7
[2024-02-14 00:17] VITALS: BP 167/76; PULSE 81; RESP 14; TEMP 36.3; O2SAT 97
--- NOTE | 2024-02-14 00:29 | ADMGEN ---
This patient, Dyllan Cassidy, was admitted to [facility] Surg Room 326-01. Patient/family oriented to hospital policies and general routines including ID bracelet, bed and alarms, visiting hours, pain management, procedures, bathroom and other care routines, personal items, smoking policy, room service/diet, and visiting hours. Information on how to activate the Rapid Response Team has been discussed. Patient/Family are encouraged to report perceived risks to care and to ask questions if they do not understand what they are told or what they should do.
--- NOTE | 2024-02-14 00:57 | PC.NURSE ---
this Rn attempted to go over patients home meds with them, pt stated that they didn't know all of them and that would bring them up tomorrow
[2024-02-14 04:00] VITALS: PULSE 66
[2024-02-14 05:52] VITALS: BP 137/89; PULSE 76; RESP 16; TEMP 36.8; O2SAT 95
[2024-02-14 07:19] LABS: Glucose Point of Care 93 mg/dl (65-105)
[2024-02-14 09:09] VITALS: PULSE 76
[2024-02-14] MEDS: METOPROLOL SUCCINATE EXT REL 25 MG TABCR PO (09:09)
[2024-02-14] MEDS: ATORVASTATIN 10 MG TABLET PO (09:09)
[2024-02-14] MEDS: TAMSULOSIN HCL 0.4 MG CAPSULE PO (09:09)
[2024-02-14] MEDS: ENOXAPARIN 40 MG/0.4 ML SYRINGE SUB-Q (09:10)
[2024-02-14 11:53] LABS: Glucose Point of Care 279 mg/dl (65-105)
--- NOTE | 2024-02-14 11:54 | PC.NURSE ---
has arrived with insulin pump, he is going to administer bolus for lunch via pump, he states he was told he will probably be discharged this afternoon also, will continue to monitor blood sugars
[2024-02-14 14:00] VITALS: BP 150/76; PULSE 77; RESP 18; TEMP 36.7; O2SAT 97
--- NOTE | 2024-02-14 14:08 | PM.DS ---
DS: Admitting Diagnosis Discharge Date 02/14/24 Admitting Diagnosis Elevated blood pressure DS: Discharge Diagnosis Discharge Diagnosis (1) Type 2 diabetes mellitus with hyperglycemia, with long-term current use of insulin: Code(s): E11.65 - Type 2 diabetes mellitus with hyperglycemia; Z79.4 - lobsterman (current) use of insulin Status: Acute (2) High blood pressure: Qualifiers: Hypertension type: unspecified Qualified Code(s): I10 - Essential (primary) hypertension Code(s): I10 - Essential (primary) hypertension Status: Acute (3) Hyperlipidemia, unspecified: Code(s): E78.5 - Hyperlipidemia, unspecified Status: Acute DS: Summary Hospital Course Hospital Course: this is a 73-year-old male with a past medical history of hypertension, hyperlipidemia, diabetes, and brain tumor with plans of surgery next month. 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 Upon arrival to the ED patient's blood pressure was 162/86.CBC CMP were mainly in range.? PTT INR were unremarkable.? Urinalysis showed 2+ protein.? No bacteriuria no pyuria.? CT head showed no intracranial abnormality seen.? Chest x-ray showed normal chest.? CT of head and neck were unremarkable per ER read.? EKG showed sinus rhythm left axis deviation right bundle branch block.? Neurology consultation was called from the emergency room. Patient admitted for an MRI and MRI did not reveal any acute findings. His labs And vital signs are stable and he is medically cleared for discharge. Time Spent with Patient Time attestation: Total time spent providing and/or coordinating discharge services: Exam Narrative: GENERAL: Comfortable, no acute distress HENMT: moist mucous membranes EYES: EOM intact b/l NECK: no lymphadenopathy RESPIRATORY: clear to auscultation CARDIO: RRR GI: soft, nontender, bowel sounds present SKIN: no rashes EXTREMITIES: no edema, redness or tenderness DS: Data Data Completed and Pending Labs on day of discharge: Labs from last 24 hours 02/14/24 02/14/24 02/13/24 11:41 07:17 21:18 PT INR APTT POC Capillary Glucose 279 H 93 296 H Troponin I NT-Pro-B Natriuret Pep 02/13/24 02/13/24 13:16 13:12 PT 13.4 INR 1.0 APTT 31.5 POC Capillary Glucose Troponin I < 0.012 NT-Pro-B Natriuret Pep 106 H Discharge Plan Discharge Attending physician on discharge: Philip Del Toro Consulting providers: Raji Ricks Discharging Clinician: Lucila Tompkins Patient Disposition: Home, Self-Care Activity: as tolerated Diet: regular Discharge Instructions: DISCHARGE INSTRUCTIONS: Call your local emergency number (074 in the [place]) or have someone else call if: You have any of the following signs of a stroke: -Numbness or drooping on one side of your face -Weakness in an arm or leg -Confusion or difficulty speaking -Dizziness, a severe headache, or vision loss -You have a seizure. -You have chest pain or shortness of breath. -You cough up blood. Seek care immediately if: -Your arm or leg feels warm, tender, and painful. It may look swollen and red. -You have unusual or heavy bleeding. -You have a severe headache or feel dizzy. Call your doctor or neurologist if: -Your blood pressure or blood sugar level is higher or lower than you were told it should be. -You have questions or concerns about your condition or care. Warning signs of a stroke: The words BE FAST can help you remember andrecognize warning signs of a stroke: B = Balance: Sudden loss of balance E = Eyes: Loss of vision in one or both eyes F = Face: Face droops on one side A = Arms: Arm drops when both arms are raised S = Speech: Speech is slurred or sounds different T = Time: Time to get help immediately Prevention: -Manage chronic health conditions mohr
[2024-02-14 15:16] VITALS: O2SAT 96
== END 2024-02-14 15:30 | disposition home or self-care (01) ==
LOC: ANHED 19:42 → ANH3MEDSUR 23:44
PROVIDERS: Nurse Practitioner Family; Admitting Provider Internal Medicine Infectious Disease; Emergency Provider Student in an Organized Health Care Education/Training Program; PCP Family Medicine; Visit Provider Family Medicine
DX: I10 Essential (primary) hypertension (principal); R53.1 Weakness; D49.6 Neoplasm of unspecified behavior of brain; E11.65 Type 2 diabetes mellitus with hyperglycemia; J44.9 Chronic obstructive pulmonary disease, unspecified; E78.00 Pure hypercholesterolemia, unspecified; G89.29 Other chronic pain; R00.0 Tachycardia, unspecified; E78.5 Hyperlipidemia, unspecified; R94.31 Abnormal electrocardiogram [ECG] [EKG]; N40.0 Benign prostatic hyperplasia without lower urinary tract symptoms; J32.9 Chronic sinusitis, unspecified; R06.02 Shortness of breath; G47.33 Obstructive sleep apnea (adult) (pediatric); Z99.89 Dependence on other enabling machines and devices; E66.01 Morbid (severe) obesity due to excess calories; Z68.38 Body mass index [BMI] 38.0-38.9, adult; Z96.41 Presence of insulin pump (external) (internal); Z87.891 Personal history of nicotine dependence; Z79.4 Long term (current) use of insulin; Z79.85 Long-term (current) use of injectable non-insulin antidiabetic drugs; Z79.84 Long term (current) use of oral hypoglycemic drugs; Z79.899 Other long term (current) drug therapy
CPT/HCPCS: 36415; 70450; 70496; 70498; 70553; 71046; 80053; 82948; 83880; 84484; 85025; 85610; 85730; 93005; 96372; 96374; 99285; A9270; A9577; G0378; J1650; J1815; J2405; Q9967

== ENCOUNTER 2024-03-18 13:28 | Outpatient (CLI) | payer MEDICARE, OTHER, SELFPAY ==
--- NOTE | 2024-03-18 13:43 | ECHO_ITS ---
Patient Info Name: Dyllan Cassidy Age: 73 years : 1950 Gender: Male Ht: 72 in Wt: 300 lbs BSA: 2.69 m2 HR: 70 bpm BP: 173 / 104 mmHg Heart Rhythm: Sinus Rhythm Technical Quality: Fair Exam Date: 03/18/2024 2:05 PM Exam Location: Echo Lab Patient Status: Outpatient Admit Date: 03/18/2024 Staff Ordering Physician: Hernandez Hunter MD Technology Lead: Ashwin Peterson RDCS Attending Provider: Hernandez Hunter MD Referring Physician: Elsa KANG; Exam Type: CA echo dop bubble study w con Study Info Indications - T IA, UNSP Complete two-dimensional, color flow and Doppler transthoracic echocardiogram is performed with contrast to opacify the left ventricle and to improve the deliniation of the left ventricle endocardial borders. Summary 1. Definity contrast administered improved wall motion interpretation. 2. Left ventricular chamber dimension is normal. 3. Left ventricular systolic function is normal, estimated at 65-70%. 4. There is mild concentric increased left ventricular wall thickness. 5. The left ventricular diastolic function is grade I diastolic dysfunction. 6. E/e' 11 is mildly elevated. 7. No pulmonary hypertension, estimated pulmonary arterial systolic pressure is 14 mmHg. Left Ventricle E/e' 11 is mildly elevated. Definity contrast administered improved wall motion interpretation. Left ventricular chamber dimension is normal. Left ventricular systolic function is normal, estimated at 65-70%. There is mild concentric increased left ventricular wall thickness. The left ventricular diastolic function is grade I diastolic dysfunction. Right Ventricle Right ventricular systolic function is normal and with normal TAPSE 3.3 cm. Right ventricular chamber dimension is normal. Left Atria Left atrial chamber dimension is normal. Right Atria Right atrial chamber dimension is normal. Atrial Septum Agitated saline injection with and without valsalva maneuver opacified right side cardiac chambers without shunt to left side cardiac chambers. Intact interatrial septum visualized by 2D and agitated saline imaging. Aortic Valve The aortic valve is trileaflet. There is no aortic valve stenosis. There is no aortic valve regurgitation. Pulmonic Valve There is no pulmonic regurgitation. Mitral Valve There is no mitral valve stenosis. There is no mitral valve regurgitation. Tricuspid Valve There is no tricuspid valve regurgitation. No pulmonary hypertension, estimated pulmonary arterial systolic pressure is 14 mmHg. Pericardium/Pleural There is no pericardial effusion. Inferior Vena Cava Normal inferior vena cava with >50% collapse upon inspiration consistent with normal right atrial pressure, 5 mmHg. Aorta The aortic root size at the sinus of Valsalva is normal. Left Ventricular Outflow Tract Name Value Normal LVOT 2D LVOT Diameter 2.1 cm LVOT Doppler LVOT Peak Gradient 5 mmHg LVOT Mean Gradient 3 mmHg LVOT VTI 26 cm LVOT VTI/AV VTI Ratio 0.8 LVOT Stroke Volume 87 ml LVOT CO 5.5 l/min
[2024-03-18] MEDS: PERFLUTREN LIPID MICROSPHERES 1.5 ML VIAL DILUTED TO 10 ML TOTAL VOLUME IV PUSH (14:34)
--- NOTE | 2024-03-23 12:35 | IVDEFINITY ---
Prior to administration of IV Definity the patient was educated on the risks and benefits of the imaging enhancing agent including potential adverse side effects. The patient verbalized understanding. Allergies were verified. No exclusion criteria were identified and at least one of the following inclusion criteria were met: 1) physician request, 2) patient technically difficult to image (per the [place] [employer] Echocardi[employer] guidelines of two or more segments not discernable within the apical view), or 3) questionable left ventricular function. ?
== END 2024-03-18 13:29 | disposition home or self-care (01) ==
LOC: ANHCARD 13:30
PROVIDERS: PCP Family Medicine; Visit Provider Family Medicine
DX: G45.9 Transient cerebral ischemic attack, unspecified (principal)
CPT/HCPCS: 96375; C8929; Q9957

== ENCOUNTER 2024-04-03 10:25 | Outpatient (CLI) | payer MEDICARE, OTHER, SELFPAY ==
--- NOTE | 2024-04-08 08:26 | WPDHOLTEREM ---
Holter/Event Monitor Holter/Event Monitor Date of procedure: 04/03/24 Holter/Event Procedure: 48 Hr Holter Monitor Indications: Syncope Conclusion: 1. 48 hour holter monitor on 04/03/24. 2. Underlying rhythm is sinus rhythm. HR range 56-98 bpm; average 72 bpm. 3. There are 86 premature supraventricular complexes and 2 supraventricular couplets. No supraventricular tachycardia. 4. There are 69 premature ventricular complexes, 1 ventricular couplet and 3 ventricular trigeminy. No ventricular tachycardia. 5. There is a 2.3 second pause at 06:50 due to a single drop beat from 2nd degree AV block. 6. No symptoms available for correlation.
== END 2024-04-03 10:26 | disposition home or self-care (01) ==
LOC: ANHCARD 10:26
PROVIDERS: PCP Family Medicine; Visit Provider Physician Assistant
DX: R55 Syncope and collapse (principal); G45.9 Transient cerebral ischemic attack, unspecified
CPT/HCPCS: 93225; 93226

== ENCOUNTER 2024-08-25 13:28 | Outpatient (RCR) | payer MEDICARE, OTHER, SELFPAY | END 2024-11-16 09:27 | disposition home or self-care (01) | LOC: ANHDMC 13:28 | PROVIDERS: PCP Family Medicine; Visit Provider Internal Medicine Endocrinology, Diabetes & Metabolism | DX: E11.65 Type 2 diabetes mellitus with hyperglycemia (principal); E78.5 Hyperlipidemia, unspecified; Z79.4 Long term (current) use of insulin; Z71.89 Other specified counseling | CPT/HCPCS: G0108 ==

== ENCOUNTER 2025-03-15 00:58 | Day surgery (SDC) | payer MEDICARE, OTHER, SELFPAY ==
[2025-03-05 14:52] VITALS: BMI 39.0
--- OUTSIDE RECORDS SUMMARY | 2025-03-15 01:01 | XMS_ITS | Clinical Summary ---
Author Organization [facility] Address [address], [address] [address] Phone Care Team Providers Care Distribution Specialist Name Role Phone Hernandez Pinedo MD Primary Care Provider [phone] Social History Tobacco Use Types Packs/Day Years Used Date Smoking Tobacco: Never Assessed Sex and Gender Information Value Date Recorded Sex Assigned at Not on file Legal Sex Male 11:23 PM CDT Gender Identity Not on file Sexual Orientation Not on file Plan of Treatment Health Maintenance Due Date Last Done Comments Hepatitis C Virus (HCV) Screening 1950 TdaP Immunization 1950 Colonoscopy 1996 Colorectal Cancer Screening 1996 Cologuard 2001 Immunochemical Fecal Occult Blood 2001 Pneumococcal Immunization (5 0+ years) (1 of 1 - PCV) 2001 Zoster Immunization (1 of 2) 2001 Influenza Immunization (#1) 2024 SARS-COV-2 Immunization ( season) 2024 Respiratory Syncytial Virus (RSV) Immunization (Adult) (1 - 1-dose 75+ series) 2026 Hepatitis B Immunization Aged Out No longer eligible based on patient's age to complete this topic Meningococcal Immunization (ACWY) Aged Out No longer eligible based on patient's age to complete this topic Rotavirus Immunization Aged Out No lo nger eligible based on patient's age to complete this topic Insurance MEDICARE Compliance 11 GENERIC Care Teams Distribution Specialist Relationship Specialty Start Date End Date Hernandez Pinedo MD PCP - General Orthopaedic Sports Medicine 03/22/21
--- OUTSIDE RECORDS SUMMARY | 2025-03-15 01:01 | XMS_ITS | CONTINUITY OF CARE DOCUMENT ---
Author Name erin khan Address Unknown Organization [facility] Address [address] [place] [address] Phone [phone] Care Team Providers Care Airset Caster Name Role Phone Ayush Nicole MD Unavailable JAVIER LAN MD Unavailable JAVIER LAN MD Unavailable [phone] PROBLEMS Condition Status Date Provider Notes Cardiomyopathy active Ayush Nicole MD Diabetes mellitus active Ayush Nicole MD Hypercholesterolemia active Ayush Riojas Tobacco use, quit active Ayush Nicole MD Renal calculus active Ayush Nicole MD Obesity active Ayush Nicole MD HTN essential active Ayush Nicole MD SLEEP APNEA;on rx active Ayush Nicole MD ENCOUNTERS Date Type Provider Location Encounter Diag nosis - In-person encounter Office Visit Ayush Nicole MD [place] [facility] - In-person encounter Office Visit Ayush Nicole MD [facility] CardiomyopathyDiabetes mellitusHypercholesterolemiaTobacco use, quitRenal calculusObesityHTN essentialSLEEP APNEA;on rx VITAL SIGNS Date Observation Value Provider blood pressure, diastolic 80 mm[Hg] Gene bhatti Jeremy blood pressure, systolic 140 mm[Hg] Karla Luna pulse rate 88 /min Clover Nova lder oxygen saturation, oximetry 95 % Clover Luna respiratory rate E&M 16 /min Clover Cordoba janaemyajose ramon Body Mass Index (Ratio) 39.19 kg/m2 Richard Pridedariaissaalida weight E&M 289 [lb_av] Clover Nova lder blood pressure, diastolic 86 mm[Hg] Sa ndra Horsey blood pressure, systolic 134 mm[Hg] Hayden tom Horsey pulse rate 102 /min Jolynn Horsey oxygen saturation, oximetry 96 % Jolynn Horsey respiratory rate E&M 20 /min Jolynn Horsey Body Mass Index (Ratio) 40.82 kg/m2 Sand ra Horsey height E&M 72 [in_i] Jolynn Horsey weight E&M 301 [lb_av] Jolynn Horsey ALLERGIES Allergy Name Onset Date Reaction Criticality Status OXYCONTIN Low Criticality active HISTORY OF MEDICATION USE Medication Status Instructions Dates Provider Indications Com ments QSYMIA 7.5-46 MG ORAL CAPSULE EXTENDED RELEASE 24 HOUR active one tablet daily Ayush Nicole MD QSYMIA 3.75-23 MG ORAL CAPSULE EXTENDED RELEASE 24 HOUR active one tablet daily Ayush Nicole MD NORCO 7.5-325 MG ORAL TABLET active 1 tablet p.r.n Jolynn Horsey CYMBALTA 60 MG ORAL CAPSULE DELAYED RELEASE PARTICLES completed 1 daily - Clover Jeremy FLOMAX 0.4 MG ORAL CAPSULE active 1 daily Jolynn Horsey LIPITOR 10 MG ORAL TABLET active 1 daily Jolynn Horsey NORVASC 10 MG ORAL TABLET active 1 daily Jolynn Horsey ASPIRIN ADULT LOW STRENGTH 81 MG ORAL TABLET DELAYED RELEASE active 1 daily Jolynn Horsey DIOVAN 320 MG ORAL TABLET active 1 daily Jolynn Horsey METFORMIN HCL 500 MG ORAL TABLET active 4 daily Jolynn Horsey HUMALOG SOLUTION active Jolynn Horsey SOCIAL HISTORY Date Observation Value Provider quit smoking, stage quit Ayush auguste MD social history E&M S moking History: Terry amnaomid is a former smoker. Ayush Nicole MD social history reviewed E&M revi ewed - no changes required Ayush Nicole MD smoking, year quit 2012 Clover morenoer smoking, date started 1966 Clover Blakelyer cigarette use yes Clover irwin smoking status Former smoker Clover parsonselder social history reviewed E&M revi ewed - no changes required Ayush Nicole MD smoking, date started 1966 Jolynn Tapia smoking, year quit 2012 Jolynn godinez cigarette use yes Jolynn Tapia smoking status Former smoker Jolynn Crystal y FAMILY HISTORY Family Member Condition Father Negative FH of Coron rika Artery Disease Mother Negative FH of Coron rika Artery Disease INSURANCE PROVIDERS Payer name Policy type / Coverage type [facility] libertarian ID [employer] [facility] 9 [id number] ADVANCE DIRECTIVES Name Date DISCUSSED - NO DECISION MADE TREATMENT PLAN Date Name Performer Cardiology Follow up : H is updated medication list for this problem includes: Lipitor 10 Mg Oral Tabs (Atorvastatin calcium) ..... 1 daily Ayush Nicole MD Cardiology Follow up :will try diet pill but does not want surgery Ayush Nicole MD Cardiology Follow up : H is updated medication list for this problem includes: Norvasc 10 Mg Oral Tabs (Amlodipine besylate) ..... 1 daily Aspirin Adult Low Strength 81 Mg Oral Tbec (Aspirin) ..... 1 daily Diovan 320 Mg Oral Tabs (Valsartan) ..... 1 daily BP today: 140/80 P rior BP: 134/86 (10/07/2015) Ayush Nicole MD Cardiology Follow up :1. Technically difficult study. Unable to determine segmental wall motion abnormalities. Normal left v entricular systolic function. Normal left ventricular size. There is E to A wave reversal consistent with i mpaired LV relaxation. Normal E/E` 12.0. Left ventricular ejection fraction is estimated at 65 %. 2 . No significant valvular abnormalities. c ors clean on cath 06 Ayush Nicole MD Cardiology:A1C 7.5 Ayush Nicole MD Cardiology:EF 45% ON CATH WITH CLEAN COR 2006, LIKELY DUE TO CONTUSION FROM FALL Ayush Nicole MD Date Name Complete Echo HISTORY OF PROCEDURES Procedure Date Procedure Name Provider Procedure Notes S tatus EKG Ayush Nicole MD complete d SNOMED-CT: [id number] Current Medications Documented Ayush Nicole MD completed EKG Ayush Nicole MD complete d SNOMED-CT: [id number] Current Medications Documented Ayush Nicole MD completed
[2025-03-15 10:07] VITALS: BP 170/91; PULSE 80; RESP 20; TEMP 36.3; O2SAT 80; BMI 39.7
--- NOTE | 2025-03-15 10:31 | WPDANESEPPF ---
Anes - Initial Pre Proc Eval Procedure: Operation Date: 03/15/25 11:00 Proposed Procedures p Screening Colonoscopy - Delano Pollock MD Date/Time: 03/15/25 10:31 Surgeon: Delano Pollock MD Pre Op Diagnosis: screening Patient Data Age: 74 Gender: M Height: 1.88 m Weight: 140.4 kg Last Vital Signs Temp 97.3 F L 03/15/25 10:07 Pulse 80 03/15/25 10:07 Resp 20 03/15/25 10:07 BP 170/91 H 03/15/25 10:07 Pulse Ox 80 L 03/15/25 10:07 O2 Del Method Room Air 03/15/25 10:07 Allergies Allergy/AdvReac Type Severity Reaction Status Date / Time empagliflozin (From Allergy Mild Other Verified 03/15/25 10:04 Jardiance) oxycodone Allergy Unknown Hives Verified 03/15/25 10:04 Home Medications ?Medication ?Instructions ?Recorded ?Confirmed ?Type subcutaneous insulin pump (MiniMed #1 ea 03/24/20 02/23/25 History 630G Insulin Pump) blood-glucose sensor (Dexcom G7 #9 ea 03/09/24 02/23/25 Rx Sensor device) blood-glucose,conservation planner,cont #1 ea 03/09/24 02/23/25 Rx (Dexcom G7 Tax Map Technician) lancets 30 gauge #400 ea 03/09/24 02/23/25 Rx blood sugar diagnostic (OneTouch #300 ea 04/07/24 02/23/25 Rx Verio test strips) semaglutide 2 mg/dose (8 mg/3 mL) 2 mg (0.75 mL) subcut WEEKLY 08/12/24 03/05/25 Rx subcutaneous pen injector (Ozempic) days #9 mL irbesartan 300 mg tablet See Rx Instructions .Route 09/21/24 03/15/25 Rx .COMPLEX #90 tabs metformin 500 mg tablet,extended See Rx Instructions .Route 11/16/24 03/15/25 Rx release 24 hr .COMPLEX #360 tabs amlodipine 10 mg tablet 10 mg PO DAILY #90 tabs 01/27/25 03/15/25 Rx atorvastatin 10 mg tablet 10 mg PO DAILY #90 tabs 02/11/25 03/15/25 Rx metoprolol succinate 50 mg 75 mg (1.5 x 50 mg) PO DAILY #135 02/23/25 03/15/25 Rx tablet,extended release 24 hr tabs insulin aspart U-100 100 unit/mL See Rx Instructions .Route 03/09/25 03/15/25 Rx subcutaneous solution .COMPLEX #100 mL Patient hx anesthesia problems: none Family hx anesthesia problems: none Results Review: All pre-operative results and documents have been reviewed as part of the pre-operative evaluation. [facility] Past Medical History Medical History (Updated 02/23/25 @ 14:01 by Hernandez Hunter MD) Obesity Arthritis of right shoulder region Achilles tendinitis of right lower extremity PONV (postoperative nausea and vomiting) Nasal septal deviation Nasal sinus tumor GERD (gastroesophageal reflux disease) Erosive esophagitis Duodenal ulcer BPH (benign prostatic hyperplasia) COPD (chronic obstructive pulmonary disease) MARTHA on CPAP HLD (hyperlipidemia) HTN (hypertension) Acute kidney injury Insulin dependent type 2 diabetes mellitus Hemoglobin A1c was 8.9% on 01/26/2021. Patient uses an insulin pump. Excessive cerumen in both ear canals Former smoker Erectile dysfunction Chronic pain Related to falling off a 30 foot scaffold in which he fractured 30 to bones. Previously on hydrocodone, he now takes ibuprofen and acetaminophen to manage the pain. skilled nursing current use of insulin Type 2 diabetes mellitus with hyperglycemia, with long-term current use of insulin Tobacco abuse Former smoker. Continues to chew Nicorette gum. Surgical History Surgical History History of nasal surgery 03/2023, to remove tumor, they were unable to remove all of it H/O colonoscopy History of orthopedic surgery Multiple orthopedic surgeries for fracture sustained in a fall off of a 30 foot scaffold, including repair of foot, shoulder, and elbow fractures. Family History Family History Mother Hypertension Family history of malignant neoplasm of ovary Father Family history of chronic obstructive pulmonary disease, Onset Age: 66 Grandparent Cancer Grandparent Cancer Other Depression Family history of arthritis Family history of lung disease Family history of mental disorder Social History Social History Social History: Surrogate decision maker: Margie Ange, . Code status: Full code. Smoking packs per day: 1 Smoking cigarettes per day: 20.0 Years smoked: 30 Smoking pack-years: 30.00 Smoking status: Former smoker Tobacco type: cigarettes Second hand tobacco smoke exposure: Yes Smoking end date: 12/02/12 Additional smoking assessment comments: Quit smoking 2005. Smoked 37 years, 1ppd. Alcohol intake: never Substance use: never Substance use type: marijuana Last use: over 50 years ago Do You Feel Safe in your Home?: Yes Lack of Transportation: No Lack of Food: Never True Current Housing: I Have Housing Concerned About Future Housing: No Difficulty Paying Gas/Electric Bills: No Difficulty Paying for Meds: No Currently Unemployed: No Education: High School Diploma/GED Difficulty w/ Childcare or Family Care: No Living arrangements: with family Additional living arrangements comments: The patient lives with his in [place]. 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 Gender identity (if verbalized by the patient): Male Spiritual care concerns: No Anes - Eval Final PreProcedure Day of Procedure 03/15/25 10:31 Patient weight: obese Heart: regular rate and rhythm Lungs: clear to auscultation Airway: Mallampati scale Neurological: alert and oriented Last oral intake: >/= 8 hours ASA classification: III Emergent: no Anesthetic plan: proceed Anesthesia type and monitoring: general GIVS and standard monitoring Results Review: All pre-operative results and documents have been reviewed as part of the pre-operative evaluation. Informed Consent: The patient's anesthetic plan and its attendant risks and benefits were discussed with the patient/family/POA. Questions were solicited and answers provided to the satisfaction of the patient/family/POA.
--- NOTE | 2025-03-15 10:33 | SUR.PREOP ---
[id number]'s blood sugar 128. Reading taken from his Dexcom.
[2025-03-15] MEDS: LACTATED RINGERS 1,000 ML 150 ML IV CONT (10:36)
--- NOTE | 2025-03-15 10:40 | PM.HPGS ---
History of Present Illness History of Present Illness Consent: Risks, benefits, and alternatives have been discussed and questions answered. Patient agrees to proceed with procedure. Chief complaint: screening Narrative: Dyllan Cassidy is a 74 year old male here for screening colonoscopy, last one more than 10 years ago Review of Systems Review of Systems: All systems reviewed & are unremarkable except as noted in HPI and below PMFSH Past Medical History Medical History (Updated 03/15/25 @ 10:40 by Delano Pollock MD) Colon cancer screening Obesity Arthritis of right shoulder region Achilles tendinitis of right lower extremity PONV (postoperative nausea and vomiting) Nasal septal deviation Nasal sinus tumor GERD (gastroesophageal reflux disease) Erosive esophagitis Duodenal ulcer BPH (benign prostatic hyperplasia) COPD (chronic obstructive pulmonary disease) MARTHA on CPAP HLD (hyperlipidemia) HTN (hypertension) Acute kidney injury Insulin dependent type 2 diabetes mellitus Hemoglobin A1c was 8.9% on 01/26/2021. Patient uses an insulin pump. Excessive cerumen in both ear canals Former smoker Erectile dysfunction Chronic pain Related to falling off a 30 foot scaffold in which he fractured 30 to bones. Previously on hydrocodone, he now takes ibuprofen and acetaminophen to manage the pain. 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 Continues to chew Nicorette gum. Surgical History Surgical History History of nasal surgery 03/2023, to remove tumor, they were unable to remove all of it H/O colonoscopy History of orthopedic surgery Multiple orthopedic surgeries for fracture sustained in a fall off of a 30 foot scaffold, including repair of foot, shoulder, and elbow fractures. Family History Family History Mother Hypertension Family history of malignant neoplasm of ovary Father Family history of chronic obstructive pulmonary disease, Onset Age: 66 Grandparent Cancer Grandparent Cancer Other Depression Family history of arthritis Family history of lung disease Family history of mental disorder Social History Social History Social History: Surrogate decision maker: Margie Cassidy, . Code status: Full code. Smoking packs per day: 1 Smoking cigarettes per day: 20.0 Years smoked: 30 Smoking pack-years: 30.00 Smoking status: Former smoker Tobacco type: cigarettes Second hand tobacco smoke exposure: Yes Smoking end date: 12/02/12 Additional smoking assessment comments: Quit smoking 2005. Smoked 37 years, 1ppd. Alcohol intake: never Substance use: never Substance use type: marijuana Last use: over 50 years ago Do You Feel Safe in your Home?: Yes Lack of Transportation: No Lack of Food: Never True Current Housing: I Have Housing Concerned About Future Housing: No Difficulty Paying Gas/Electric Bills: No Difficulty Paying for Meds: No Currently Unemployed: No Education: High School Diploma/GED Difficulty w/ Childcare or Family Care: No Living arrangements: with family Additional living arrangements comments: The patient lives with his in [place]. 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 #1 ea 03/09/24 02/23/25 Rx (Dexcom G7 [employer]) lancets 30 gauge #400 ea 03/09/24 02/23/25 Rx blood sugar diagnostic (OneTouch #300 ea 04/07/24 02/23/25 Rx Verio test strips) semaglutide 2 mg/dose (8 mg/3 mL) 2 mg (0.75 mL) subcut WEEKLY 08/12/24 03/05/25 Rx subcutaneous pen injector (Ozempic) days #9 mL irbesartan 300 mg tablet See Rx Instructions .Route 09/21/24 03/15/25 Rx .COMPLEX #90 tabs metformin 500 mg tablet,extended See Rx Instructions .Route 11/16/24 03/15/25 Rx release 24 hr .COMPLEX #360 tabs amlodipine 10 mg tablet 10 mg PO DAILY #90 tabs 01/27/25 03/15/25 Rx atorvastatin 10 mg tablet 10 mg PO DAILY #90 tabs 02/11/25 03/15/25 Rx metoprolol succinate 50 mg 75 mg (1.5 x 50 mg) PO DAILY #135 02/23/25 03/15/25 Rx tablet,extended release 24 hr tabs insulin aspart U-100 100 unit/mL See Rx Instructions .Route 03/09/25 03/15/25 Rx subcutaneous solution .COMPLEX #100 mL Allergies Allergy/AdvReac Type Severity Reaction Status Date / Time empagliflozin (From Allergy Mild Other Verified 03/15/25 10:04 Jardiance) oxycodone Allergy Unknown Hives Verified 03/15/25 10:04 Vital Signs Vital Signs - 24 hr 03/15/25 10:07 Temperature 97.3 F L Pulse Rate 80 Respiratory Rate 20 Blood Pressure 170/91 H Pulse Oximetry 80 L Oxygen Delivery Room Air Exam Const: General: comfortable and no acute distress HENMT: Face/Nose/Sinus: Normal nares present Eyes: General: appearance normal, both eyes and all related structures Neck: Neck: no JVD Resp: Auscultation: clear to auscultation bilaterally Cardio: Rate: regular rate Rhythm: regular rhythm GI: Inspection: non-distended GI Palp: Yes Soft to palpation Skin: General skin exam: normal color Neuro: Speech: normal speech Extrem: General: normal to inspection Psych: Mental Status: mental status grossly normal Assessment and Plan Assessment and plan (1) Colon cancer screening: Code(s): Z12.11 - Encounter for screening for malignant neoplasm of colon Status: Acute Assessment and Plan: colonoscopy
[2025-03-15 10:56] VITALS: BP 124/61; PULSE 70; RESP 20; O2SAT 98
[2025-03-15 11:06] VITALS: BP 143/68; PULSE 68; RESP 19; O2SAT 97
--- NOTE | 2025-03-15 11:14 | SUR.PHASEII ---
Patient's blood sugar on dexcom is 133.
[2025-03-15 11:16] VITALS: BP 135/71; PULSE 63; RESP 16; O2SAT 100
== END 2025-03-15 11:28 | disposition home or self-care (01) ==
PROVIDERS: PCP Family Medicine; Referring Provider Family Medicine; Visit Provider Internal Medicine Gastroenterology
PROC: 0DJD8ZZ Inspection of Lower Intestinal Tract, Via Natural or Artificial Opening Endoscopic (ICD-10-PCS; CPT 45378; principal; 2025-03-15 11:00)
DX: Z12.11 Encounter for screening for malignant neoplasm of colon (principal); D12.2 Benign neoplasm of ascending colon; K57.30 Diverticulosis of large intestine without perforation or abscess without bleeding; K64.8 Other hemorrhoids; Z87.891 Personal history of nicotine dependence; E66.9 Obesity, unspecified; Z68.39 Body mass index [BMI] 39.0-39.9, adult
CPT/HCPCS: 45385; 88305; J2003; J2704; J7120